=== PATIENT | female | born 1950 | race Caucasian/White ===

== ENCOUNTER 2017-03-09 16:41 | Inpatient (IN) | payer OTHER ==
[~2017-03-09] VITALS: Ht 170.2 cm; Wt 147.0 kg
[~2017-03-09 16:41] MED LIST: ASPI-973 PO; ATOR80TA PO; CALCIT PO; CARV12.52 PO; CHOL5000 PO; DEP250A PO; FERR-74 PO; GABA100C PO; LOSA100T29 PO; METF1000 PO; MULT-666 PO; NIFE30TA92 PO; NORT10CA PO; NPH,100V11 SUBQ; OXYC-466 PO; PANT40TA3 PO; POLY17PO6 PO; RANI150C4 PO; RISP1TAB90 PO; SENN-133 PO; TIZA6CAP9 PO
[2017-03-09 18:08] VITALS: BP 125/73; PULSE 89; RESP 20; O2SAT 96
[2017-03-09 19:25] VITALS: BP 117/62; PULSE 88; RESP 19; O2SAT 97
[2017-03-09] MEDS ORDERED: 0.9% Sodium Chloride 1,000 ML IV SCH (20:33)
[2017-03-09] MEDS ORDERED: Polyethylene Glycol (PEG) 17 Gm Powder PO PRN (20:35)
[2017-03-09] MEDS ORDERED: Alum-Mag Hydrox-Simeth 30 mL Suspension PO PRN (20:35)
[2017-03-09] MEDS ORDERED: Ondansetron 2 mg/mL 2 mL Inj IVPUSH PRN (20:35)
[2017-03-09] MEDS: 0.9% Sodium Chloride 1,000 ML IV SCH (21:11)
[2017-03-09] MEDS ORDERED: Glucose 40% Oral Gel 15 Gm Tube PO PRN (21:50)
[2017-03-09] MEDS ORDERED: Dextrose 10% 250 ML IV PRN (21:50)
[2017-03-09] MEDS: Insulin LISPRO 300 Unit/3 mL Inj SUBQ SCH (22:43)
[2017-03-09 23:32] LABS: INR 1.27 ratio
[2017-03-10 00:07] VITALS: BP 136/80; PULSE 71; RESP 19; O2SAT 97
[2017-03-10] MEDS: Sodium Chloride LOK Flush 10 mL Syringe IVFLUSH SCH ×3 (00:30→17:29)
[2017-03-10] MEDS: CeFAZolin Inj 2 GM in IV Premix 1 EACH IV SCH ×4 (02:23→22:55)
--- NOTE | 2017-03-10 02:32 | PCM.HPMED ---
Subjective Date of Service Mar 09, 2017 Primary Provider: Admitting Physician: Goran Forte MD Primary Care Physician: Vel Lennon DO Attending Physician: Goran Forte MD Chief Complaint: Left lower extremity pain, swelling, History of Present Illness: Jazzy Nunez 66-year-old woman with diabetes mellitus type II insulin using , hyperlipidemia, atrial fibrillation on warfarin, transferred to [facility] from [facility] after being diagnosed with osteomyelitis, rhabdomyolysis, sepsis, acute on chronic renal insufficiency, elevated lactate and positive troponin. Patient states that prior to hospitalization she was being seen by her home health care nurse who ended up calling 911 after patient was acting confused and was having increased pain in her left foot causing her to not be able to ambulate, she also describes presence of a cough. She said she does not feel well and has had fevers, chills, and cold sweats starting roughly 5 days ago. She is being seen by Dr. Edwin ELLER for ongoing problems with her feet, and Dr. Pineda has accepted the patient [facility]. Presenting vitals: 86.8, 95, 20, 100/50, 92% on 2 L nasal cannula. Labs on presentation 03/07/2017: WBC 10.6, Hgb 9.7, MCV 89.5, platelets 131, RDW 14.9. Sodium 129, potassium 5.6, chloride 92, bicarbonate 23, anion gap of 14, glucose 371, BUN 44, creatinine 3.38, estimated GFR 13 mL per minute. ALT/AST 97/297, total bilirubin 1.6, troponin 0.61, 8 hours later increased to 1.49 creatinine kinase total 12,791 with an MB fraction of 16.4 Most recent labs from today, March 09, WBC 5.9, Hgb 8.8, MCV 90, platelets 118, RDW 14.9. Sodium 136, potassium 4.7, chloride 102, bicarbonate 23, anion gap 11 , glucose 155, BUN 65, creatinine 3.34, estimated GFR 14 mL per minute, Urine from 03/07/2017 trace leukocyte esterase, pH 5.5, nitrite negative, 1+ protein, 2+ blood, negative ketones, negative glucose, 3+ bacteria, occasional epithelial cells. Physician dictation from discharge summary states EKG showed atrial fibrillation with RVR, rate 110, nonspecific intraventricular conduction delay. CT abdomen and pelvis without contrast showed left kidney nonobstructive stone 0.5 cm the lower pole. Otherwise unremarkable. Chest x-ray showed poor inspiratory effort and poor quality film no acute cardiopulmonary findings. Blood culture DNA identification panel performed March 07 revealed Staphylococcus aureus She was started on Ancef as she appeared to be growing MSSA and vancomycin was discontinued. She received potassium replacement at [facility], improved anion gap. Review of Systems: A comprehensive review of systems was conducted with the patient and found to be negative except as above in the history of presenting illness. Allergies Coded Allergies: Penicillins (Verified Allergy, Unknown, UNKNOWN, 02/01/16) Patient states she think she got hives. Home Medications Aspirin 81 mg daily Lipitor 80 mg every afternoon baclofen 10 mg 3 times a day calcium/vitamin D daily Vitamin D 3 5000 IUs daily Plavix 75 mg daily Cymbalta 60 mg daily Ferrous sulfate 325 mg 3 times a day Lasix 120 mg daily NPH 80 units in the morning, 20 units at night Lactobacillus 1 tablet 3 times a day Level thyroxine 50 g daily Ativan 1 mg 3 times a day as needed for anxiety Losartan 100 mg every afternoon Metformin 1000 mg twice a day Metoprolol 75 mg twice a day Multivitamin 1 tablet daily Pamelor 150 mg at bedtime Nystatin powder apply to affected areas 3 times a day when necessary Oxycodone 10/325 one tablet every 4 hours when necessary for pain Protonix 40 mg every morning MiraLAX 17 mg in 8 ounces of water daily Zantac 150 mg twice a day Senokot 8.6 mg daily for constipation Aldactone 50 mg daily Zanaflex 4 mg every 6 hours 3 times daily Warfarin 5 mg daily PMH Peripheral vascular disease 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 Family History Family history breast cancer, diabetes, hypertension and peripheral vascular disease, hypercholesterolemia Social History Hx Alcohol Use: No Hx Substance Use: No Hx Tobacco Use: No Smoking Status: Never Smoker Living Arrangement: Alone Exam Vital Signs Vital Sign - Last Date Time Temp Pulse Resp B/P Pulse Ox O2 Delivery O2 Flow Rate FiO2 03/09/17 19:25 36.6 88 19 117/62 97 Room Air Exam General: Laying in bed, no apparent distress. Asleep and easily awoken to verbal stimuli, morbidly obese. HEENT: Normocephalic, atraumatic, EOMI grossly, poor dentition, mucous membranes moist, neck supple without lymphadenopathy, conjunctiva pink, PERRLA. Cardiovascular: Irregularly irregular rhythm, normal rate, peripheral pulses 2/ 4 to upper extremities equal bilaterally. Cap refill equal bilaterally to lower extremities Pulmonary: Clear to auscultation bilaterally, no W/R/R. Abdominal: Soft to palpation, bowel sounds present 4, no hepatosplenomegaly. Negative rebound. Extremities: Bilateral lower Rylan edema, red erythema with excoriation pretibial left lower extremity, dorsum of left foot, left foot is swollen, red, warm. Neuro: Neurologically grossly intact, strength is equal bilaterally upper and lower extremities. MSK: Able to move extremities on their own volition, strength 5 out of 5 equal bilaterally to upper and lower extremities. Psych: Oriented to person, place, time, situation, appropriate mood and affect. Some confusion with recollection of events leading up to her hospitalization. Lab and Diagnostics Labs See paper chart Outlying values mentioned in history of present illness Microbiology See paper chart, reportedly growing MSSA Assessment & Plan 66-year-old woman with hypertension, hyperlipidemia, atrial fibrillation, chronic kidney disease, uncontrolled diabetes, presented with weakness, confusion, chills to [facility], was found to be septic with probable source of infection left lower extremity, deemed to have osteomyelitis , she had elevated l[place] [address], and blood PCR identified staph aureus species, and culture growing MSSA. She was started on Ancef, received fluids, and monitored. Decision was made that surgery may be necessary and she was transferred to [facility] and will be seen by Dr. Pineda of podiatry. Acute Sepsis, present on admission, treatment ongoing Presenting vitals pulse of 95, respirations 20, lactate 6.8, with most likely focus of infection left foot. Blood pressures remained stable Treatment for osteomyelitis as below Blood culture DNA identification performed 03/07/2017, results in paper chart Lactic acid 6.8 on presentation to [address] [place] [id number], has trended down. Will recheck and continue to trend if elevated. Acute osteomyelitis, present on admission, active MSSA grew on culture, Ancef 2 g every 6 hours based on patient's habitus. Dr. Pineda DPM to see patient with anticipated surgery. Pro-calcitonin and trend I cannot find x-ray report of left lower extremity, however I am under the impression that Dr. Pineda has seen the images and thus has accepted her at [facility]. Acute Rhabdomyolysis, present on admission, active CK Greater than 12,000, attributed to injury or possible fall and dehydration. Patient again conveys that she did not fall. IV fluids normal saline 100 mL per hour Recheck CK Acute on chronic kidney injury, present on admission, active Attributed to injury from rhabdomyolysis above, superimposed dehydration. IV fluids as above Nephrology consultation Permanent atrial fibrillation, POA, active Rate is controlled. ASA 81 mg daily Continue metoprolol 75 mg by mouth twice a day Warfarin dosed by pharmacy, last INR 1.4 on 03/09/2017 6 AM. Chronic hypertension, present on admission, stable Continue to monitor, Continue home medications of losartan, Metoprolol tartrate 75 mg by mouth twice a day Diabetes mellitus type II, chronic, uncontrolled Present on admission, blood sugar greater than 300 by Accu-Chek Humalog sliding scale insulin while awake with meals Hemoglobin A1c Diabetes education Chronically elevated troponin, POA active Patient's troponin remained elevated throughout hospitalization and was trending down before discharge, denies chest pain, angina equivalents. We will recheck troponin if change in rhythm, rate, or symptomatic. Morbid obesity, present on admission, active BMI 50.8 Dietitian/volunteer patient representative consultation Chronic Hypothyroidism, POA, stable 50 g levothyroxine by mouth daily Resolved/presumed stable Hyponatremia, -follow with a.m. labs hyperkalemia, - follow with a.m. labs Elevated transaminases - attributed to fatty liver, follow with a.m. labs Anemia - attributed to chronic disease, continue to follow with a.m. labs Mild thrombocytopenia- follow with a.m. labs, watch for bleeding, bruising. Medication reconciliation to be completed. Patient is admitted to inpatient status, greater than 2 minutes and dissipated based on presenting symptoms, complexity of care, and anticipated risk of adverse events. Pain Evaluation: Adequate Pain Control GI Prophylaxis: Not indicated VTE Prophylaxis: Theraputic Anticoag with Warfarin VTE Mechanical Devices: Intermittant Pneumatic CD Resuscitation Status: CPR: Attempt Resuscitation Attending Statement The patient was seen and examined together with Dr. Lim on 03/09 and I agree with the history, exam and plan as outlined in the note above. Curtis Lozano DO Mar 09, 2017 20:49 Mik Zurita MD Mar 10, 2017 07:59
[2017-03-10 04:53] VITALS: BP 164/83; PULSE 95; RESP 19; O2SAT 97
[2017-03-10 05:15] LABS: BASOPHILS % (AUTO) 0.7 % (0-3); EOSINOPHILS % (AUTO) 4.3 % (0-5); MONOCYTES % (AUTO) 10.4 % (4-12); Mean Corpuscular Hemoglobin 28.7 pg (27.0-35.0); Mean Corpuscular Volume 90.6 fL (81-100); NEUTROPHILS % (AUTO) 70.7 % (40-74); Platelet Count 142 bil/L (150-400)
[2017-03-10 05:31] LABS: INR 1.24 ratio
[2017-03-10] MEDS ORDERED: ASPI81TA3 PO (06:03)
[2017-03-10] MEDS ORDERED: LACT1CAP6 PO (06:03)
[2017-03-10] MEDS ORDERED: LEVO50TA6 PO (06:03)
[2017-03-10] MEDS ORDERED: BACL10TA PO (06:03)
[2017-03-10] MEDS ORDERED: METO75TA PO (06:03)
[2017-03-10] MEDS ORDERED: DULO60CA61 PO (06:03)
[2017-03-10] MEDS ORDERED: LOSA100T29 AD (06:03)
[2017-03-10] MEDS ORDERED: NYST1POW23 MC (06:24)
[2017-03-10] MEDS ORDERED: OXYC-466 PO (06:24)
[2017-03-10] MEDS: 0.9% Sodium Chloride 1,000 ML IV SCH (06:33)
--- NOTE | 2017-03-10 06:34 | NUR ---
Anxiety Patient has had increased anxiety this morning. Patient stated she was worried about a food delivery service that was supposed to deliver to her house. Patient has a persistent cough that she states started yesterday and seems to be increasing in severity. Patient was unable to confirm many of her medications. Medication reconciliation ongoing. Vitals stable.
--- NOTE | 2017-03-10 07:29 | NUR ---
persistent cough/SOB pt has rales through. She received 4L of fluid while she was at [facility] yesterday. Call to Dr Forte, he will put in order for Stuart
[2017-03-10] MEDS ORDERED: Furosemide 10 mg/mL 2 mL Inj IVPUSH ONE (07:30)
[2017-03-10] MEDS: Insulin LISPRO 300 Unit/3 mL Inj SUBQ SCH ×4 (08:29→23:07)
[2017-03-10] MEDS ORDERED: Insulin Human NPH 100 Unit/mL 3 mL Inj SUBQ SCH ×2 (08:30→17:30)
[2017-03-10 08:49] VITALS: BP 131/76; PULSE 68; RESP 18; O2SAT 97
--- NOTE | 2017-03-10 12:18 | CONS ---
[address] [address] CONSULTATION REPORT PATIENT: TIM RODGERS : 1950 MR#: [id number] ADMIT: 03/09/2017 JOB ID: [id number] DATE OF SERVICE: 03/10/2017 RENAL CONSULTATION: HISTORY: The patient is a very pleasant, 66-year-old white female who was transferred to [facility] from [facility] for acute kidney injury and rhabdomyolysis. Renal consultation is being sought for further evaluation and management of her acute kidney injury. She has a history of [id number] diabetes mellitus for at least 8-10 years. Her diabetes has been complicated by peripheral neuropathy, vascular disease, and previous ulcers in the distal lower extremity. She also has a history of peripheral vascular disease. She apparently had taken several doses of baclofen and fell asleep in her chair. She had great difficulty being aroused and was asleep for an unknown period of time. She was initially taken to [facility] where at that time her creatinine was found to be 3.38 and her CPK was 12,791. She was given several liters of IV fluid and subsequently transferred to [facility] for further evaluation. She denies a history of any prior renal problems. There is no history of any prior hematuria, proteinuria, recurrent urinary tract infections, renal lithiasis, difficulties with urination, frequent use of nonsteroidal anti-inflammatories, lupus, or hepatitis C. As noted above she does have a history of diabetes. She states her last eye exam was less than a month ago and there is no history of any diabetic retinopathy. There is also a longstanding history of hypertension and atrial fibrillation for which she is on warfarin. She has also had a history of recurrent ulcerations to her left lower leg for which she has been seen by Dr. Pineda in the past. A recent blood culture showed MSSA; however, I am unsure as to how many bottles were positive for this. She was originally given a dose of vancomycin and now that it was found to be MSSA she was switched to cefalotin. PAST MEDICAL HISTORY: 1. Remarkable for diabetes which she has been complicated by diabetic peripheral neuropathy and peripheral vascular disease. 2. Peripheral vascular disease. 3. Hypertension with hypertensive heart disease and hypertensive nephrosclerosis. 4. GERD. 5. Hyperlipidemia. 6. Hypothyroidism. However, she denies a history of any prior stroke, seizure, asthma, emphysema, prior heart issues including myocardial infarction or congestive heart failure. There is no history of any malignancies. PAST SURGICAL HISTORY: Significant for a carpal tunnel release, a revascularization of her right leg, ORIF of her right arm, and some type of surgery to her knee. ALLERGIES: PENICILLINS. SOCIAL HISTORY: She denies use of alcohol, tobacco, or illicit drugs. She is retired and is somewhat sedentary in her activities of daily living for which she requires some assistance. REVIEW OF SYSTEMS: As detailed above. Otherwise she denies any headache, visual disturbances, amaurosis fugax, scotomas, cough, wheezing, chest pain, orthopnea, but she does admit to some lower extremity edema and increasing abdominal girth over the last several weeks. She also states she has felt that she has gained some weight in her abdomen. Otherwise there is no nausea, vomiting, constipation, anorexia, or diarrhea. FAMILY HISTORY: Remarkable for breast cancer, diabetes, hypertension, peripheral vascular disease, and hyperlipidemia. MEDICATIONS: At time of admission include aspirin, Lipitor, baclofen, Plavix, Cymbalta, ferrous sulfate, Lasix, insulin, lactobacillus, levothyroxine, Ativan, losartan, metformin, metoclopramide, Pamelor, oxycodone, Protonix, MiraLAX, Zantac, Senokot, Aldactone, Zanaflex, and warfarin. PHYSICAL EXAMINATION: Revealed a morbidly obese 66-year-old white female who was alert and oriented x3, though quite talkative at time of my evaluation. Her blood pressure is 131/76 with a pulse rate of 68. HEENT examination is remarkable for pale sclerae. Cornea, conjunctiva, pupils, and extraocular muscles were all within normal limits. Mucous membranes were moist. Neck is supple, without adenopathy or thyromegaly. Because of her body habitus I could not determine any degree of jugular venous distention. Examination of her lungs showed some diminished breath sounds bilaterally but otherwise were clear. Heart was regular and rhythmical with a soft systolic murmur. Abdomen is distended, with a free fluid wave noted. Her abdomen is non tense. There was no tenderness, rebound, guarding, or masses; however, there was some questionable hepatomegaly noted. Extremities showed some mild pitting edema in both distal lower extremities. Half and half nails were noted. Her left lower extremity showed evidence of diffuse erythema and several small ulcerations consistent with peripheral vascular disease. The area was also warm to touch. Skin turgor was good and there was no evidence of any rashes. LABORATORY: As detailed above at time of admission her creatinine was 3.3; however, this morning she has had considerable improvement. Her sodium is 139, potassium 5.5, chloride 104, bicarbonate 21. BUN and creatinine were 48 and 1.5. Liver function studies showed a marked elevation; her AST was 260, ALT was 364. CPK this morning was 4900 and albumin was 3.1. Procalcitonin is 1.01. Her white count is 5.8, hemoglobin 9.8, hematocrit 31.0. Red cell indices and platelet count and differential were normal. No urinalysis was available at time of admission. IMPRESSION: 1. Acute kidney injury. 2. Rhabdomyolysis which is resolving. 3. Hyperkalemia. 4. Diabetic nephropathy. 5. Hypertension with hypertensive heart disease and hypertensive nephrosclerosis with right-sided congestive heart failure. 6. Type 4 renal tubular acidosis. RECOMMENDATION: I feel the patient at this point is euvolemic and her renal function and CPK are continuing to improve. I would recommend getting a renal ultrasound and also a scan of the abdomen for ascites. I would also like to get an echocardiogram if one has not been obtained recently. If there is a recent echo, we would like to get this from [facility]. I would also like to check a uric acid level and a serum protein electrophoresis. I would also be strongly suspicious for obstructive sleep apnea and would recommend at the minimum a nocturnal oximetry reading. Once again, I would like to thank you for allowing me to participate in the care of this most pleasant and interesting patient. I will be following her closely with you.
--- NOTE | 2017-03-10 14:10 | DRSVH ---
PROCEDURE: US ABDOMEN, LIMITED ([id number]) INDICATIONS: Evaluate for ascites in the abd. TECHNIQUE: Real-time focused scanning was performed of the abdomen, with image documentation. COMPARISON: [facility], CT, CT ANGIO AORTA RUNOFF, 11/04/2015, 13:53. FINDINGS: No ascites found. IMPRESSION: No ascites found throughout the peritoneal space. Dictated by: Blair Chandler M.D. on 03/10/2017 at 14:08 Approved by: Blair Chandler M.D. on 03/10/2017 at 14:08
--- NOTE | 2017-03-10 14:53 | PCM.PHAPRO ---
Progress Left lower extremity pain, swelling, WARFARIN DOSING PER PHARMACY Mar 10-Feb 1.27 1.24 -0.03 unknown HOLD Dosing is currently being held due to anticipation of surgery Pharmacy will continue to follow, thank you Maryellen Ariza PharmD Mar 10, 2017 14:53
[2017-03-10] MEDS ORDERED: SENN-133 PO (16:26)
[2017-03-10] MEDS ORDERED: SPIR50TA2 PO (16:26)
[2017-03-10] MEDS ORDERED: WARF2.5T PO (16:26)
[2017-03-10] MEDS ORDERED: CHOL500062 PO (16:26)
[2017-03-10] MEDS ORDERED: WARF5TAB7 PO (16:26)
[2017-03-10] MEDS ORDERED: FURO-128 PO (16:26)
[2017-03-10] MEDS ORDERED: CLOP75TA3 PO (16:26)
--- NOTE | 2017-03-10 16:39 | PCM.PNMED ---
Subjective Date of Service Mar 10, 2017 Subjective Patient having a wide variety of complaints but when pressed says other than the IV giving her pain is okay. No chest pain, no dyspnea, no nausea or vomiting Exam Vital Signs Vital Sign - Last Date Time Temp Pulse Resp B/P Pulse Ox O2 Delivery O2 Flow Rate FiO2 03/10/17 08:49 36.8 68 18 131/76 97 Room Air Intake and Output 03/09/17 03/09/17 03/10/17 Cumulative From/Thru 15:00 23:00 07:00 03/09/17 18:10 - 03/10/17 06:41 Intake Total 90 ml 1571 ml 1661 ml Output Total 150 ml 1100 ml 1250 ml Balance -60 ml 471 ml 411 ml Intake Oral 90 ml 650 ml 740 ml IV Total 921 ml 921 ml Output Urine Total 150 ml 1100 ml 1250 ml # Bowel Movements 0 0 Exam Gen.- A+ O 3 mild to moderate distress as described above. Morbidly obese female Head-atraumatic/normocephalic Eyes- open conjunctiva clear, pupils equal, nonicteric Mouth- no deformity of lips ENT- ears no deformity, nose no deformity Neck- supple/trach midline CVS- RRR no murmur or gallop Lungs- CTA GI- NABS/NT soft, generous/each pannus Musc- moving 4 no obvious deformity There is a dressing over left foot to skin is dry, and the foot is somewhat more swollen than the right Neuro- cranial nerves II through XII intact to gross examination, nonfocal Skin- warm and dry, no rashes/lesions/wounds noted Numerous lines delineate where erythema may have been 03/09 it has receded since then. Psych- pleasant and appropriate, Lab and Diagnostics Result Diagram: 03/10/17 0500 03/10/17 0500 Microbiology See paper chart, reportedly growing MSSA X-Rays, CTs and MRIs US ABDOMEN, LIMITED: Blair Chandler M.D. on 03/10/2017 at 14:08 No ascites found throughout the peritoneal space. Dictated by: Blair Chandler M.D. on 03/10/2017 at 14:08 Assessment & Plan 66-yo woman presented with weakness, confusion, chills to [facility] 03/09, septic with probable source left lower extremity/osteomyelitis, transferred to [facility] to be seen by Dr. Pineda of podiatry. 03/10 Dr. Pineda needed to be consulted and it is coming to see the patient she is going to be fed today as there is no surgery planned at this point in time. CKs are trending down and eat an EKG and another troponin and an adjusting insulin as this patient is on upwards of 100 units a day and blood sugars are running over 300 while she was nothing by mouth. Treating hyperkalemia with IV fluids in addition to the rhabdo and giving a dose of Kayexalate will follow up labs in the morning. Her anemia is chronic and largely unchanged. Transaminitis likely related to whatever event cause the rhabdo and hope we will continue to trend this prior transaminases have been normal. Cellulitis/osteomyelitis L foot, MSSA, on Ancef 2 g q6 03/09- -Dr. Pineda DPM consulted 03/10 Rhabdomyolysis, CK >12,000 UGH 03/09, down to 4900, continue to trend/hydrate -Patient not having pain and it does not appear she has a compartment syndrome however with severe peripheral vascular disease that is known this is an obvious concern. AAKASH- base Cr 0.7, 1.5 03/10, continued hydration trend. hyperkalemia, - follow with a.m. labs-Dose Kayexalate 03/10 continue IV fluids elevated troponin, POA active- need to see current EKG and follow most likely related to rhabdo. Patient is not symptomatic Peripheral vascular disease- known chronically occluded superficial femoral artery attempted to be opened by Dr. Campos likely 2015 contributes to why patient is on aspirin, clopidogrel, warfarin afib,Rate controlled.ASA 81 mg daily?, metoprolol 75 mg BID, Warfarin dosed by pharmacy, last INR 1.4 on 03/09/2017 6 AM. HTN losartan,Metoprolol tartrate 75 mg by mouth twice a day Diabetes mellitus type II, - BS 250-300/24hrs, will adjust regimen and this is while patient has been primarily nothing by mouth for surgery -Present on admission, blood sugar greater than 300 by Accu-Chek -Humalog sliding scale insulin while awake with meals -Hemoglobin A1c -Diabetes education Morbid obesity, present on admission, active- BMI 50.8, Dietitian/food service director consultation Chronic Hypothyroidism, POA, stable- 50 g levothyroxine by mouth daily Elevated transaminases - acute/new certainly steatohepatitis is not helping this but's is a new problem. Anemia - Hg baseline 9-10 GI Prophylaxis: Not indicated VTE Prophylaxis: Theraputic Anticoag with Warfarin VTE Mechanical Devices: Intermittant Pneumatic CD Resuscitation Status: CPR: Attempt Resuscitation Goran Forte MD Mar 10, 2017 16:39 Patient is admitted to inpatient status, greater than 2 minutes and dissipated based on presenting symptoms, complexity of care, and anticipated risk of adverse events. GI Prophylaxis: Not indicated VTE Prophylaxis: Theraputic Anticoag with Warfarin VTE Mechanical Devices: Intermittant Pneumatic CD Resuscitation Status: CPR: Attempt Resuscitation Goran Forte MD Mar 10, 2017 16:39
[2017-03-10 16:51] VITALS: BP 150/65; PULSE 70; RESP 19; O2SAT 96
[2017-03-10] MEDS ORDERED: NORT75CA PO (16:52)
[2017-03-10] MEDS ORDERED: [UNRECOGNIZED DRUG - CODE] DENTAL (16:52)
[2017-03-10] MEDS ORDERED: ASPI-973 PO (16:52)
[2017-03-10] MEDS ORDERED: LORA1TAB PO (16:52)
[2017-03-10] MEDS ORDERED: FRSM80T PO (16:52)
[2017-03-10] MEDS ORDERED: CALC-235 PO (16:52)
--- NOTE | 2017-03-10 19:56 | NUR ---
Home Health patient pretty anxious about getting ahold of her home urvashi nurse unable to get answer t number she gave me but did leave [facility]
[2017-03-10 20:37] VITALS: BP 137/74; PULSE 82; RESP 18; O2SAT 94
[2017-03-10] MEDS: Insulin Human NPH 100 Unit/mL 3 mL Inj SUBQ SCH (23:08)
--- NOTE | 2017-03-10 23:25 | CONS ---
[address] [address] CONSULTATION REPORT PATIENT: TIM RODGERS : 1950 MR#: [id number] ADMIT: 03/09/2017 JOB ID: [id number] DATE OF SERVICE: 03/11/2017 The patient is asked to be seen for infected ulcer with possible osteomyelitis of her left foot. The patient was admitted to [facility] on March 09, 2017 and was confused and was having increasing pain in her left foot. She did have fever and chills, however, she has not had any problems with this today. She was being seen by home health to do dressing changes on her left foot, however, she was unable to answer the door and the home health nurse had to crawl through the window in order to access her home. She did end up calling 911 and the ambulance took her to [facility]. Blood culture showed sepsis as her blood cultures were positive. Am MRI was performed at [facility] which showed probable osteomyelitis at the 4th metatarsal plantar joint. However, the patient was unable to lay still and there was some motion artifact. The patient has a prior history of diabetic foot infection with osteomyelitis of the 3rd through 5th metatarsophalangeal joints in October 2015. The infection cleared with local bone debridement as well as IV and oral antibiotics. She has been battling with a recurrent diabetic neuropathic ulceration since then. She was being seen at the [facility] as well as by Home Health for local wound cares. She also has a problem with chronic swelling of the left lower leg of undetermined etiology. Dr. Lennon was adjusting her diuretic medication to try to decrease her edema. It was noted that she had an elevated creatinine and rhabdomyolysis diagnosed upon this admission to [facility]. She has a history of diabetes and her blood sugars are usually well controlled. She also has a history of atrial fibrillation and is on warfarin. She has had poor circulation in the past and had a bypass on her left lower leg as well as angioplasty of the right lower leg. The patient was scheduled to have an amputation of her right hallux which was actually scheduled for tomorrow. Recent x-rays show that the distal phalanx of the right hallux was osteolytic when compared to previous x-rays and the toe has become more painful, red and swollen, although there is no ulceration at this time. PAST MEDICAL HISTORY: Significant for peripheral vascular disease, diabetes type 2 with peripheral neuropathy, GERD, hypertension, hypercholesterolemia, hypothyroidism, carpal tunnel, history of diabetic neuropathic ulcerations with osteomyelitis left foot, 2016. PAST SURGICAL HISTORY: Carpal tunnel release, surgery of the right humerus, right knee surgery, left leg arterial bypass. HOME MEDICATIONS: 1. Aspirin 81 mg daily. 2. Lipitor 80 mg every afternoon. 3. Baclofen 10 mg t.i.d. 4. Calcium and vitamin D daily. 5. Vitamin D3 5000 international units daily. 6. Plavix 75 mg daily. 7. Cymbalta 60 mg daily. 8. Ferrous sulfate 325 mg three times a day. 9. Lasix 120 mg daily., 10. NPH insulin 80 units in the morning and 20 units at night. 11. Lactobacillus one tablet three times a day. 12. Levothyroxine 50 mcg daily. 13. Ativan 1 mg three times a day as needed for anxiety. 14. Losartan 100 mg every afternoon. 15. Metformin 1000 mg twice a day. 16. Metoprolol 75 mg b.i.d. 17. Multivitamin one tablet daily. 18. Pamelor 150 mg at bedtime. 19. Nystatin powder applied to affected areas three times a day p.r.n. 20. Percocet 10/325 one tablet every 4 hours p.r.n. pain. 21. Protonix 40 mg every morning. 22. MiraLAX 17 mg in 8 ounces of water daily. 23. Zantac 150 mg twice daily. 24. Senokot 8.6 mg daily for constipation. 25. Aldactone 50 mg daily. 26. Zanaflex 4 mg every 6 hours t.i.d. 27. Warfarin 5 mg daily. ALLERGIES: PENICILLIN. She gets hives. SOCIAL HISTORY: She does not smoke or drink alcohol. She lives in her own home alone. PHYSICAL EXAMINATION: Blood pressure 150/65, pulse 70, respirations 19, temperature 36.8, pulse oximetry 96% on room air. There is hyperkeratosis with underlying pustular discharge, plantar 4th metatarsophalangeal joint. There is underlying pustular discharge underneath the hyperkeratosis and this extended into the 4th interspace. There is surrounding erythema and swelling. I am able to manually express pustular discharge from the medial aspect of the 4th metatarsophalangeal joint. Upon debridement of the hyperkeratosis and nonviable and fibrotic tissue, it was noted that the head of the 4th metatarsal was visible within the wound base. The erythema and swelling extended from the 4th to 5th metatarsophalangeal joint around the base of the plantar aspect of the 5th toe. The bone was yellow, discolored and slightly soft to palpation. There is dorsal dislocation of the 5th left toe over the 5th metatarsophalangeal joint. There is mild erythema and swelling of the anterior matthew and dorsal midfoot area, however, this is not contiguous with the erythema and swelling around the plantar aspect of the 4th and 5th metatarsophalangeal joint. Dorsalis pedis and posterior tibialis artery is nonpalpable. The foot is warm to touch. LABORATORY DATA: WBC 5.8, hemoglobin 9.8, hematocrit 31, platelets 142, neutrophils 70.7. Sodium 139, potassium 5.5, chloride 104, carbon dioxide 21, BUN 48, creatinine 1.50. Estimated GFR 50. Glucose 272, lactic acid 1.1, uric acid. 9.8, calcium 8.4, total bilirubin 0.7, AST 260. ALT 364, alkaline phosphatase 119, total creatine kinase 4919, total protein 5.8, albumin 3.1, procalcitonin 1.01, PT 13.3, INR 1.24. ASSESSMENT/PLAN: 1. Abscess with probable osteomyelitis as there is bone exposed within the wound base. The blood culture from [facility] is positive for methicillin sensitive Staphylococcus aureus. She is currently receiving Ancef IV. I incised and drained the abscess overlying the 4th and 5th metatarsophalangeal joints. After I administered 4 cc of lidocaine 1% plain around the area of the ulcer, the nonviable and fibrotic tissue was sharply excised through skin edges through healthy subcutaneous tissue using a tissue nipper. I also manually applied pressure to the dorsal 4th and 5th metatarsophalangeal joint as well as interspaces and I was unable to express any pustular discharge. I debrided the yellow discolored bone down to healthy bleeding bone using a tissue nipper, and a sample was sent for culture and sensitivity. I then applied pressure to the medial aspect of the 4th metatarsophalangeal joint and was able to express a small amount of pus. Using a tissue nipper, I debrided the necrotic tissue in this area and then copiously flushed the remaining ulceration with normal saline. The remaining ulceration measured 1.1 cm x 0.7 cm x 0.4 cm in depth. The area was then dressed using Hydrogel, 1/4 inch Iodoform gauze, 4 x 4 gauze, and Kerlix. The patient tolerated the procedure well. Will continue with Ancef until culture results are final. I will reassess tomorrow to see whether further debridement needs to be performed. I recommend having the dressing changed twice daily and the wound flushed with normal saline to help resolve the infection. 2. Chronic osteomyelitis, right hallux. Patient was scheduled for a distal amputation at the hallux interphalangeal joint, however, this is not urgent and can be addressed on an outpatient basis as planned. 3. Type 2 diabetes. Blood sugars are usually well controlled when it is measured at the wound clinic. 4. Peripheral vascular disease. The patient has not had any problems with healing of the wound since she has had a bypass on the left foot as well as on the right foot.
[2017-03-11] MEDS: Sodium Chloride LOK Flush 10 mL Syringe IVFLUSH SCH ×4 (00:30→23:19)
[2017-03-11] MEDS: CeFAZolin Inj 2 GM in IV Premix 1 EACH IV SCH ×4 (02:56→22:06)
[2017-03-11 05:21] LABS: BASOPHILS % (AUTO) 0.5 % (0-3); EOSINOPHILS % (AUTO) 2.4 % (0-5); MONOCYTES % (AUTO) 10.4 % (4-12); Mean Corpuscular Hemoglobin 28.8 pg (27.0-35.0); Mean Corpuscular Volume 89.9 fL (81-100); NEUTROPHILS % (AUTO) 71.2 % (40-74); Platelet Count 182 bil/L (150-400)
[2017-03-11 05:22] VITALS: BP 153/75; PULSE 104; RESP 20; O2SAT 94
[2017-03-11 05:38] LABS: INR 1.12 ratio
[2017-03-11 06:50] LABS: Unsaturated Iron Binding 166.7 ug/dL
[2017-03-11 07:43] LABS: TROPONIN T 0.085 ug/L (0.0-0.011)
[2017-03-11] MEDS ORDERED: Sodium Chloride NAS 45 mL Spray NASAL PRN (07:55)
[2017-03-11] MEDS ORDERED: Polyethylene Glycol (PEG) 17 Gm Powder PO PRN (09:10)
[2017-03-11] MEDS: Insulin LISPRO 300 Unit/3 mL Inj SUBQ SCH ×4 (09:25→22:05)
[2017-03-11] MEDS: Codeine-guaiFENesin 10 mL Syrup PO PRN (09:25)
[2017-03-11] MEDS: Fluticasone 0.05% 15 Spray/2 Gm 16 Gm Nasal Spray NASAL SCH (09:30)
[2017-03-11] MEDS: Insulin Human NPH 100 Unit/mL 3 mL Inj SUBQ SCH (10:10)
--- NOTE | 2017-03-11 11:30 | PCM.PNNEPH ---
Subjective Date of Service Mar 11, 2017 Subjective Patient is a 66yof transfer patient from [facility] with MHx significant for longstanding DM II with neuropathy and hypertension admitted for AAKASH 2nd to rhabdomyolysis and sepsis related to osteomyelitis. She reports increasing dry cough, otherwise denies any other new symptoms. No nausea vomiting fevers or chills. Patient does have an underlining chronic pain, which alleviated when home medication including baclofen reinstated. Today's vitals stable temperature 36.7, pulse 104, BP 153/75, pulse 94% on room air. I's and O's remained adequate colon 1.3/2.3 L. Kidney function significantly improved, creatinine 0.85 is at baseline. Total CK 2100, significantly down from initial 13,000. Electrolytes sodium 139, potassium 4.9, chloride 102, bicarbonate 18, when necessary 25. AST ALT elevated, 155/246. Trending down, again patient denies any abdominal pain Uric acid elevated at 9.8 CBC unremarkable, hemoglobin 10 stable. Iron panel study came back with iron 50, TIBC 217, percent saturation 23, unsaturation iron binding is 166. Patient fluid stopped yesterday, Pt likely slightly overloaded given that she receive over 4 L normal saline with physical finding of mild crackers and the lower lung base. Labs SPE pending Exam Vital Signs Vital Sign - Last Date Time Temp Pulse Resp B/P Pulse Ox O2 Delivery O2 Flow Rate FiO2 03/11/17 05:22 36.7 104 20 153/75 94 Room Air Intake and Output 03/10/17 03/10/17 03/11/17 Cumulative From/Thru 15:00 23:00 07:00 03/09/17 18:10 - 03/11/17 06:34 Intake Total 1200 ml 1332 ml 4193 ml Output Total 3600 ml 2300 ml 7150 ml Balance -2400 ml -968 ml -2957 ml Intake Oral 1200 ml 1037 ml 2977 ml IV Total 295 ml 1216 ml Output Urine Total 3600 ml 2300 ml 7150 ml # Bowel Movements 0 0 Exam General: Alert, Oriented X3, No Acute Distress Eyes: PERRLA, EOMI, Scleral Anicteric, Mouth: Mucous Membranes Dry Neck: Supple, no jvd Chest & Lungs: b/l lung sound, mild wheezes, no crackles or coarse breathing Cardiovascular: Exam Unremarkable, Regular Rate/Rhythm, Normal S1, Normal S2, No Murmurs/Rubs/Gallops Abdomen: obese, Non-tender, Non-distended, no rebound tenderness, Positive bowel sounds. Genitourinary: Quiles Present Extremities: No cyanosis/clubbing, lysis ulcer Right distal lateral plantar with mild erythema and swelling. Neuro: CN II-VII intact, moving equally on a 4 extremities. Lab and Diagnostics Result Diagram: 03/11/17 0504 03/11/17 0504 Microbiology See paper chart, reportedly growing MSSA X-Rays, CTs and MRIs US ABDOMEN, LIMITED: Blair Chandler M.D. on 03/10/2017 at 14:08 No ascites found throughout the peritoneal space. Dictated by: Blair Chandler M.D. on 03/10/2017 at 14:08 Plan Impression Patient is a 66yof transfer patient from [facility] with MHx significant for longstanding DM II with neuropathy and hypertension initially presented with altered mentation, admitted for AAKASH, sepsis, and osteomyolitis. Nephrology has been consulted for eval and treatment of acute kidney injury. AAKASH 2nd to most likely rhabdomyolysis. Patient had reportedly took baclofen and sat on hard chair for unknown hours. Initial labs showed elevated Cr 3.38 with elevated BUN 44 and hyperkalemia, Uric acid also high, indicative of rhabdomyolysis. Creatinine and thus renal function normalized with aggressive hydration. # Acute kidney injury (resolved). baseline Creatinine 0.88 # Rhabdomyolysis (resolved) # Hyperkalemia. (resolved) # Insulin dependent diabetes II with diabetic nephropathy. # Chronic osteomyolitis # Hypertension with hypertensive heart disease and hypertensive nephrosclerosis with right-sided congestive heart failure. # Type 4 renal tubular acidosis. Plan: - AAKASH resolved, Cr back to baseline. Nephrology will go ahead and sign off. - Recommend toresemide 20mg PO daily at discharge. - Start allopurinol 100 mg daily. Chris Larios DO Mar 11, 2017 11:30
[2017-03-11 12:30] VITALS: BP 146/82; PULSE 81; RESP 18; O2SAT 91
--- NOTE | 2017-03-11 13:46 | NUR ---
Evaluation completed. Please go to "Notes" then click on "Assessments and Notes" (bottom left corner of screen). Then select appropriate discipline tab on top of screen.
--- NOTE | 2017-03-11 14:31 | DRSVH ---
PROCEDURE: US RENAL SONOGRAM INDICATIONS: recent marilyn TECHNIQUE: Real-time scanning was performed of the kidneys and bladder, with image documentation. COMPARISON: None. FINDINGS: Kidneys: Kidneys are normal in size. Right kidney measures 11.1 cm long; left kidney measures 11.0 cm long. Right renal cortical thickness is 1.8 cm; left renal cortical thickness is 1.0 cm. Renal c ortical echotexture is normal. No hydronephrosis or nephrolithiasis. No suspicious solid mass lesio ns. Bladder: Bladder is empty with catheter present. Ureteral jets are not seen. Miscellaneous: No free pelvic fluid. IMPRESSION: Technically difficult exam secondary to body habitus. No renal obstruction seen. Urinary bladder is e mpty. Dictated by: Alfredo Contreras M.D. on 03/11/2017 at 14:27 Approved by: Alfredo Contreras M.D. on 03/11/2017 at 14:29
[2017-03-11] MEDS: Nystatin 100,000 Unit/Gm 15 Gm Powder TOPICAL SCH ×2 (14:42→22:05)
--- NOTE | 2017-03-11 16:00 | NUR ---
Activity Patient shown much improvement from this morning. Able to assist with getting out of bed and dangles with no pain.
[2017-03-11] MEDS: Pantoprazole 40 mg ER24 Tablet PO SCH (16:27)
--- NOTE | 2017-03-11 17:19 | PCM.PNMED ---
Subjective Date of Service Mar 11, 2017 Subjective Patient complaining of terrible pain from intervention done last night. She denies chest pain but she is having a cough, no nausea or vomiting or breathing trouble. She does mention that she normally takes sinus medication. Exam Vital Signs Vital Sign - Last Date Time Temp Pulse Resp B/P Pulse Ox O2 Delivery O2 Flow Rate FiO2 03/11/17 12:30 36.7 81 18 146/82 91 Room Air Intake and Output 03/10/17 03/10/17 03/11/17 Cumulative From/Thru 15:00 23:00 07:00 03/09/17 18:10 - 03/11/17 06:34 Intake Total 1200 ml 1332 ml 4193 ml Output Total 3600 ml 2300 ml 7150 ml Balance -2400 ml -968 ml -2957 ml Intake Oral 1200 ml 1037 ml 2977 ml IV Total 295 ml 1216 ml Output Urine Total 3600 ml 2300 ml 7150 ml # Bowel Movements 0 0 Exam Gen.- A+ O 3 . Morbidly obese female +/-distress Head-atraumatic/normocephalic Eyes- open conjunctiva clear, pupils equal, nonicteric Mouth- no deformity of lips ENT- ears no deformity, nose no deformity Neck- supple/trach midline CVS- RRR no murmur or gallop Lungs- CTA GI- NABS/NT soft, generous/each pannus Musc- moving 4 no obvious deformity Large dressing over left foot C/D/i Neuro- cranial nerves II through XII intact to gross examination, nonfocal Skin- warm and dry, no rashes/lesions/wounds noted Psych- pleasant and appropriate, she has quite a dramatic affect Lab and Diagnostics Result Diagram: 03/11/17 0504 03/11/17 0504 Microbiology See paper chart, reportedly growing MSSA X-Rays, CTs and MRIs US ABDOMEN, LIMITED: Blair Chandler M.D. on 03/10/2017 at 14:08 No ascites found throughout the peritoneal space. Dictated by: Blair Chandler M.D. on 03/10/2017 at 14:08 Assessment & Plan 66-yo woman presented with weakness, confusion, chills to [facility] 03/09, septic with probable source left lower extremity/osteomyelitis, transferred to [facility] to be seen by Dr. Pineda of podiatry. 03/10 Dr. Pineda needed to be consulted and it is coming to see the patient she is going to be fed today as there is no surgery planned at this point in time. CKs are trending down and eat an EKG and another troponin and an adjusting insulin as this patient is on upwards of 100 units a day and blood sugars are running over 300 while she was nothing by mouth. Treating hyperkalemia with IV fluids in addition to the rhabdo and giving a dose of Kayexalate will follow up labs in the morning. Her anemia is chronic and largely unchanged. Transaminitis likely related to whatever event cause the rhabdo and hope we will continue to trend this prior transaminases have been normal. 03/11 renal function is normalized, hyperkalemia corrected. Nephrology consult noted/appreciated. Rhabdo is greatly improved not totally resolved. EKG is slightly abnormal and patient is in A. fib and troponin somewhat elevated so we will check an echocardiogram. Blood pressure and heart rate were elevated this morning patient had not been getting metoprolol. This error was corrected. Blood sugar still elevated titrating back in NPH I do not believe that she is going to need sleep to 80 units of NPH twice a day. Were up to 30 units. Cellulitis/osteomyelitis L foot, MSSA, on Ancef 2 g q6 03/09- -Dr. Pineda DPM consulted 03/10 -Awaiting cultures from 03/10 debridement Rhabdomyolysis, CK >12,000 U[facility] 03/09, down to 4900 03/10, 2100 03/11 AAKSAH- base Cr 0.7, 1.5 03/10, 0.8 03/11 back to baseline Hyperuricemia- starting allopurinol hyperkalemia, - follow with a.m. labs-Dose Kayexalate 03/10, corrected 03/11 elevated troponin, POA active- need to see current EKG and follow most likely related to rhabdo. Patient is not symptomatic, -EKG subtle abnormalities, check echo Peripheral vascular disease- known chronically occluded superficial femoral artery attempted to be opened by Dr. Campos likely 2015 -s/p intervention [facility] Dr Speedy gli,Rate controlled.ASA 81 mg daily?, metoprolol 75 mg BID, Warfarin dosed by pharmacy, last INR 1.4 on 03/09/2017 6 AM. HTN losartan,Metoprolol tartrate 75 mg by mouth twice a day Diabetes mellitus type II, - BS 250-300/24hrs, will adjust regimen and this is while patient has been primarily nothing by mouth for surgery -Humalog sliding scale insulin while awake with meals, NPH 15 units twice a day added 03/10 blood sugar still low 300s now increasing to 30 units twice a day -Hemoglobin A1c still pending 03/11 -Diabetes education Morbid obesity, present on admission, active- BMI 50.8, Dietitian/clay artisan consultation Chronic Hypothyroidism, POA, stable- 50 g levothyroxine by mouth daily Elevated transaminases - acute/new certainly steatohepatitis is not helping this but's is a new problem. Correcting continued trend every few days Anemia - Hg baseline 9-10 Prophylaxis- DVT patient on warfarin therapeutic, managed by pharmacy, GI on pantoprazole Disposition- full code from home GI Prophylaxis: Not indicated VTE Prophylaxis: Theraputic Anticoag with Warfarin VTE Mechanical Devices: Intermittant Pneumatic CD Resuscitation Status: CPR: Attempt Resuscitation Goran Forte MD Mar 11, 2017 17:19
[2017-03-11] MEDS ORDERED: CALCIUM CARBONATE PO SCH (17:30)
[2017-03-11] MEDS ORDERED: VITAMIN D3 PO SCH (17:30)
[2017-03-11] MEDS ORDERED: LORazepam 1 mg Tablet PO ONE (19:03)
[2017-03-11] MEDS: LORazepam 1 mg Tablet PO PRN (19:03)
[2017-03-11 20:05] VITALS: BP 142/78; PULSE 89; RESP 19; O2SAT 94
[2017-03-11] MEDS ORDERED: Insulin Human NPH 100 Unit/mL 3 mL Inj SUBQ SCH (20:30)
[2017-03-11] MEDS ORDERED: SODIUM FLUORIDE DENTAL SCH (20:30)
[2017-03-11] MEDS: DULoxetine 30 mg DR Capsule PO SCH (21:00)
--- NOTE | 2017-03-11 21:39 | PROG NOTE ---
[address] [address] PROGRESS NOTE PATIENT: TIM RODGERS : 1950 MR#: [id number] ADMIT: 03/09/2017 JOB ID: [id number] DATE: 03/11/2017 The patient is seen for followup of infected ulcer, left foot. She states that she had terrible pain since the incision and drainage yesterday. She rates it as 7/10. She states she is also getting aches and pains in other parts of her body. She complains that she is not getting her usual pain medication and is only receiving oxycodone with acetaminophen. She denies any fever, chills. PHYSICAL EXAMINATION: Blood pressure 153/75, pulse 104, respiratory rate 20, temperature 36.7, pulse oximetry 94% on room air. Lower extremity exam: Dressing intact with a small amount of serosanguineous drainage. There is decreased erythema and swelling around the ulcer, plantar 4th metatarsophalangeal joint. There is serous drainage. No pustular discharge is noted even with manual pressure around the ulcer. There is approximately 80% fibrin tissue. Granulation tissue is pink and firm. There is bone exposed within the wound base. However, it is hard with palpation. There is no pain with palpation around these ulcers. Neurovascular status is intact to all toes of the left foot. LABORATORY DATA: WBC 6.3, hemoglobin 10, hematocrit 31.2, platelets 182. Neutrophils 71.2. Sodium 139, potassium 4.9, chloride 102, carbon dioxide 18, BUN 25 creatinine 0.85. Estimated GFR 96. Glucose 265. Calcium 8.4, iron 50, TIBC 217, 23% saturation. Unsaturated iron binding 166.7, total bilirubin 0.6. AST 155, ALT 246, alkaline phosphatase 135. Total creatine kinase 2111. Troponin 0.085. Total protein 6. Albumin 3.2. PT 12, INR 1.12. Microbiology culture from March 10, left foot Gram stain: No polys, no organisms seen. ASSESSMENT/PLAN: 1. Cellulitis with probable osteomyelitis, 4th metatarsophalangeal joint. Is improved. The erythema and swelling is improved from yesterday and there is no pustular discharge noted. I reviewed the Gram stain and there has so far been no polys or organisms seen. The patient, however, has been on antibiotics. Therefore the culture may not be showing growth. We will continue with [facility] as the acute symptoms of infection appear to be resolving. I would recommend long-term IV antibiotics for treatment for osteomyelitis, however, as there is bone exposed at the wound base. I will recheck the foot tomorrow and if the acute symptoms are resolved the patient can be either sent home with home IV therapy or transferred to a [facility] facility. 2. Diabetic neuropathic ulceration, left 4th metatarsophalangeal joint status post incision and drainage. The ulcer appears slightly smaller today and the nonviable and fibrotic tissue was selectively debrided from the base of the wound using a tissue nipper. There was no bleeding noted. The patient tolerated the procedure well. The ulceration was redressed using Hydrogel, 4 x 4 gauze, and Kerlix. Recommended that the dressings to be changed daily. 3. Type 2 diabetes with peripheral neuropathy. The patient can weightbear on her left foot as tolerated and a diabetic shoe.
[2017-03-12] MEDS: CeFAZolin Inj 2 GM in IV Premix 1 EACH IV SCH ×4 (03:11→20:22)
--- NOTE | 2017-03-12 03:20 | NUR ---
Activity/Pain Patient in bed all of shift so far. Noted to be doing arm and leg exercises independently. Denies pain or discomfort, received scheduled PO Tylenol. Resting with eyes closed upon reassessments. 2L NC placed while sleeping, pt desat'ing down to low 80s. Up to 98% with 2L NC.
[2017-03-12 05:10] VITALS: BP 137/82; PULSE 94; RESP 19; O2SAT 99
[2017-03-12 07:28] LABS: INR 1.15 ratio
--- NOTE | 2017-03-12 08:40 | PCM.PHAPRO ---
Progress Date of Service: Mar 12, 2017 Warfarin dosing Date Mar 10Mar 11-Mar 12 INR 1.27 1.24 1.12 1.15 INR change -0.03 -0.12 0.03 Warf Dose unknown HOLD 5MG 5MG Guillaume Lemus Mar 12, 2017 08:40
[2017-03-12] MEDS: Pantoprazole 40 mg ER24 Tablet PO SCH ×2 (08:41→16:49)
[2017-03-12] MEDS: Sodium Chloride LOK Flush 10 mL Syringe IVFLUSH SCH ×2 (08:42→16:11)
[2017-03-12] MEDS: Fluticasone 0.05% 15 Spray/2 Gm 16 Gm Nasal Spray NASAL SCH (08:43)
[2017-03-12] MEDS: Nystatin 100,000 Unit/Gm 15 Gm Powder TOPICAL SCH ×3 (08:43→20:27)
[2017-03-12] MEDS: Insulin LISPRO 300 Unit/3 mL Inj SUBQ SCH ×5 (08:44→22:00)
[2017-03-12 09:54] VITALS: BP 138/71; PULSE 89; RESP 20; O2SAT 100
--- NOTE | 2017-03-12 10:02 | DRSVH ---
[facility] [address] [place] [address] Echocardiogram Report Name: TIM RODGERS JStudy Date: Height: 67 in Hospital Exam Location: [facility] Weight: 329 lb Gender: Female BSA: 2.5 m2 : 1950 Age: 66 yrs BP: 153/75 mmHg Reason For Study: ELEVATED TROPONIN Ordering Physician: ELIZABETH TEAM Performed By: Hernandez Diaz Referring Physician: Jersey DENT Interpretation Summary Please don't finalize-- Definity contrast used. 1) Mild concentric left ventricular hypertrophy with normal size and borderline reduced systolic function (EF 50-55%). 2) No focal wall motion abnormalities. 3) Mildly dilated right ventricular with mildly reduced function. 4) Moderate tricuspid regurgitation present. 5) Pulmonary hypertension present, estimated systolic pulmonary pressure of 55mmHg. 6) Hypertension present during the study (BP 153/75). 7) No prior Echo available for comparison. Procedure: A two-dimensional transthoracic echocardiogram with color flow and Doppler was performed. The study quality was technically difficult. There is no prior echocardiogram noted for this patient. A contrast injection of Definity was performed to improve assessment of LV function. The patient was in atrial fibrillation with controlled ventricular rate during the exam. The patient had a heart rate of 85-106 beats per minute. Left Ventricle: The left ventricle is normal in size. Left ventricular wall thickness is mildly increased. The ejection fraction is estimated to be 50- 55%. There are no focal wall motion abnormalities. Assessment of diastolic parameters suggests a pseudonormalization pattern, consistent with elevated filling pressures. Right Ventricle: The right ventricle is mildly dilated. Right ventricular systolic function is mildly reduced. Atria: Both atria are normal in size. The interatrial septum is intact with no evidence for an atrial septal defect. Mitral Valve: There is moderate mitral annular calcification. The mitral valve leaflets are mildly calcified. The mitral valve chordae are thickened and/or calcified. There is trace mitral regurgitation. Aortic Valve: The aortic valve is trileaflet. The aortic valve is mildly calcified. Leaflet mobility is minimally reduced. There is no aortic valve stenosis. There is trace aortic regurgitation. Tricuspid Valve: The tricuspid valve leaflets are thin and pliable. There is moderate tricuspid regurgitation. The right ventricular systolic pressure is estimated at 55 mmHg assuming a right atrial pressure of 8 mm Hg. Pulmonic Valve: The pulmonic valve is normal in structure and function. There is trace pulmonic regurgitation. Great Vessels: The aortic root is normal size. The ascending aorta is at the upper limits of normal in size. The pulmonary artery is normal size. The IVC is dilated (diameter is greater than 2.1 cm) yet it collapses greater than 50% with a sniff. This suggests a right atrial pressure of 8 mm Hg. Pericardium/ Pleura There is no pericardial effusion. There is no pleural effusion. MMode/2D Measurements & Calculations LVIDd: 4.1 cm LA dimension: 4.4 cm RA long axis LVOT diam LVIDs: 2.6 cm FS: 37.1 % LA A2 area: 22.3 cm RA area Ao root diam EPSS: 0.36 cm LA A4 area: 25.1 cm IVSd: 1.1 cm LA length (vol): 5.8 cm : 17.5 cm Aortic Jxn LVPWd: 1.2 cm LA vol: 81.4 ml RA vol: 48.3 ml LA vol index RA asc Aorta : 19.3 mm2 Diam: 3.6 cm IVC diam: 2.3 cm LV shafer. diameter/BSA LV sys. diameter/BSA RVD1 (basal) RVD2 (mid) (cm/m^2): 1.6 (cm/m^2): 1.0 : 4.3 cm Doppler Measurements & Calculations Ao V2 max: 180.8 cm/secMV E max freddie MV E/A: 305.0 TR max freddie Ao max P.2 mmHg : 168.4 cm/sec Med Peak E' Freddie : 339.5 cm/sec Ao mean P.1 mmHg MV A max freddie TR max PG LVOT Max Freddie : 0.55 cm/sec E/E' med: 26.5 : 46.7 mmHg : 113.4 cm/sec Lat Peak E' Freddie PA V2 max MVA(VTI): 2.9 cm2 : 110.8 cm/sec LUI(I,D): 2.3 cm E/E' lat: 19.4 PA mean PG sev ratio: 0.71 E/e' average PA Accel Time : 0.07 sec MV V2 mean Ao V2 mean LV V1 max PG PA V2 mean : 104.7 cm/sec : 135.8 cm/sec : 70.6 cm/sec MV mean P.2 mmHg Ao V2 VTI: 35.2 cmLV V1 VTI PA pr(Accel) MV V2 VTI: 27.3 cm : 25.1 cm : 46.5 mmHg MV dec time: 0.20 sec LUI(V,D): 2.0 cm2 LUI indexed to BSA (cm^2/m^2): 0.91 Reading Physician:10:01 AM
[2017-03-12] MEDS: Insulin Human NPH 100 Unit/mL Syringe SUBQ SCH ×2 (11:09→21:22)
--- NOTE | 2017-03-12 13:06 | PCM.PNMED ---
Subjective Date of Service Mar 12, 2017 Subjective Doing much better, vertical, burning in hands almost immediately improved by Lyrica. No chest pain, no dyspnea, no nausea or vomiting. Exam Vital Signs Vital Sign - Last Date Time Temp Pulse Resp B/P Pulse Ox O2 Delivery O2 Flow Rate FiO2 03/12/17 09:54 36.7 89 20 138/71 100 Nasal Cannula 2.00 Intake and Output 03/11/17 03/11/17 03/12/17 Cumulative From/Thru 15:00 23:00 07:00 03/09/17 18:10 - 03/12/17 05:09 Intake Total 981 ml 724 ml 5898 ml Output Total 900 ml 1250 ml 9300 ml Balance 81 ml -526 ml -3402 ml Intake Oral 794 ml 600 ml 4371 ml IV Total 187 ml 124 ml 1527 ml Output Urine Total 900 ml 1250 ml 9300 ml # Bowel Movements 0 0 0 Exam Gen.- A+ O 3 . Morbidly obese female +/-distress Head-atraumatic/normocephalic Eyes- open conjunctiva clear, pupils equal, nonicteric Mouth- no deformity of lips ENT- ears no deformity, nose no deformity Neck- supple/trach midline CVS-normal rate Lungs-regular nonlabored GI- generous/each pannus Musc- moving 4 no obvious deformity Large dressing over left foot C/D/i Neuro- cranial nerves II through XII intact to gross examination, nonfocal Skin- warm and dry, no rashes/lesions/wounds noted Psych- pleasant and appropriate, she has quite a dramatic affect Lab and Diagnostics Result Diagram: 03/11/17 0504 03/11/17 0504 Microbiology micro from bedside I+D/debridement 03/10 no organisms 03/12 See paper chart, reportedly growing MSSA, X-Rays, CTs and MRIs US ABDOMEN, LIMITED: Blair Chandler M.D. on 03/10/2017 at 14:08 No ascites found throughout the peritoneal space. Dictated by: Blair Chandler M.D. on 03/10/2017 at 14:08 12-lead ECG Rate 122, QTC 476 and currently reviewed by Reanna 03/10 . Atrial fibrillation . Low voltage, precordial leads . Consider anterior infarct Cardiac Echo Impressions Echocardiogram Report: Savi 03/11 Please don't finalize-- Definity contrast used. 1) Mild concentric left ventricular hypertrophy with normal size and borderline reduced systolic function (EF 50-55%). 2) No focal wall motion abnormalities. 3) Mildly dilated right ventricular with mildly reduced function. 4) Moderate tricuspid regurgitation present. 5) Pulmonary hypertension present, estimated systolic pulmonary pressure of 55mmHg. 6) Hypertension present during the study (BP 153/75). 7) No prior Echo available for comparison. Assessment & Plan 66-yo woman presented with weakness, confusion, chills to [facility] 03/09, septic with probable source left lower extremity/osteomyelitis, transferred to [facility] to be seen by Dr. Pineda of podiatry. 03/10 Dr. Pineda needed to be consulted and it is coming to see the patient she is going to be fed today as there is no surgery planned at this point in time. CKs are trending down and eat an EKG and another troponin and an adjusting insulin as this patient is on upwards of 100 units a day and blood sugars are running over 300 while she was nothing by mouth. Treating hyperkalemia with IV fluids in addition to the rhabdo and giving a dose of Kayexalate will follow up labs in the morning. Her anemia is chronic and largely unchanged. Transaminitis likely related to whatever event cause the rhabdo and hope we will continue to trend this prior transaminases have been normal. 03/11 renal function is normalized, hyperkalemia corrected. Nephrology consult noted/appreciated. Rhabdo is greatly improved not totally resolved. EKG is slightly abnormal and patient is in A. fib and troponin somewhat elevated so we will check an echocardiogram. Blood pressure and heart rate were elevated this morning patient had not been getting metoprolol. This error was corrected. Blood sugar still elevated titrating back in NPH I do not believe that she is going to need sleep to 80 units of NPH twice a day. We're up to 30 units. 03/12 patient clinically much better she is up at bedside we will discontinue her Quiles catheter. Still not clear what happened with her blood sugars are she is not getting her sliding scale with the prandially this is been requested. In the meantime patient is weightbearing as tolerated with a offloading shoe she will likely be discharging home with IV antibiotics which ones not clear. For now we are continuing IV abx here till definitive therapy decided. Diabetes mellitus type II, - BS 250-300/24hrs, will adjust regimen and this is while patient has been primarily nothing by mouth for surgery -Humalog sliding scale insulin while awake with meals, NPH 15 units twice a day added 03/10 blood sugar still low 300s now increasing to 30 units twice a day , 8U prandial+SS added 03/12 -Hemoglobin8.0 03/10 Cellulitis/osteomyelitis L foot, MSSA, on Ancef 2 g q6 03/09- -Dr. Pineda DPM consulted 03/10, cultures from 03/10 (-) 03/12 Rhabdomyolysis, CK >12,000 [facility] 03/09, down to 4900 03/10, 2100 03/11 AAKASH- base Cr 0.7, 1.5 03/10, 0.8 03/11 back to baseline Hyperuricemia- starting allopurinol hyperkalemia, - follow with a.m. labs-Dose Kayexalate 03/10, corrected 03/11 elevated troponin, POA active- need to see current EKG and follow most likely related to rhabdo. Patient is not symptomatic, -EKG subtle abnormalities, -Echo 03/12 largely normal as above -Would benefit from outpatient risk stratification with Myoview no further workup in hospital this time. Peripheral vascular disease- known chronically occluded superficial femoral artery attempted to be opened by Dr. Campos likely 2016 -s/p intervention [facility] Dr Speedy gil,Rate controlled.ASA 81 mg daily?, metoprolol 75 mg BID, Warfarin dosed by pharmacy, last INR 1.4 on 03/09/2017 6 AM. HTN losartan,Metoprolol tartrate 75 mg by mouth twice a day Morbid obesity, present on admission, active- BMI 50.8, Dietitian/regional facilities manager consultation Chronic Hypothyroidism, POA, stable- 50 g levothyroxine by mouth daily Elevated transaminases - acute/new certainly steatohepatitis is not helping this but's is a new problem. Correcting continued trend every few days Anemia - Hg baseline 9-10 Prophylaxis- DVT patient on warfarin therapeutic, managed by pharmacy, GI on pantoprazole Disposition- full code from home GI Prophylaxis: Not indicated VTE Prophylaxis: Theraputic Anticoag with Warfarin VTE Mechanical Devices: Intermittant Pneumatic CD Resuscitation Status: CPR: Attempt Resuscitation Goran Forte MD Mar 12, 2017 13:06
--- NOTE | 2017-03-12 13:36 | NUR ---
Social Work- Brief Note Data: EMR reviewed. Pt is a 66 year old female admitted 03/09/17 for foot osteomylitis per H&P. Pt's insurance is [employer] [facility]. Pt's PCP is Vel Lennon DO. Pt confirms that she does not have MCR, she has commercial [employer] plan. Pt's NOK is sister Ingrid Jacobs, . Pt's readmit risk score is 6- high risk. SW acknowledges SNF order. SW met with pt at bedside regarding discharge plan, SW role explained. Pt alert and oriented x3. Pt resides in [place] in a manufactured home on [address] where she is independent at baseline. Pt uses a cane at home and has strategically placed chairs around her home to assist with ambulation throughout her home. Pt also has a walker available. Pt does not drive. Pt receives Meals on Wheels and and is familiar with services provided by [facility]. Pt is currently open with [facility] for wound care. Patricia, [facility] liaison, informed [facility] that pt's care needs are beyond the scope of and they are not able to continue servicing pt. SW spoke with pt at bedside regarding this and SNF placement. Pt is agreeable to SNF placement and requested [facility]. After making the referral to [facility], [facility] was notified that pt is on their do not admit list and they are unable to accept pt. SW informed pt that [facility] is not an option at this time and pt became irritable stating that she is not going to any other [facility] SNF choice list was left at bedside for pt to review. SW explained that SNF is her medical team's recommendation at this time. Pt is very unhappy regarding this. SW questioned pt what she would be able to do at home since PT assessed her and she is only able to stand 5 minutes and sit on the EOB for 3 minutes. SW also asked her about IV abx and wound care needs. Pt informed [facility] that she has experience managing her IV abx at home with an infusion company. Pt did not answer physical mobility question. Pt is adamant that HH RN will be able to transportation operations manager her wound care needs despite [facility] stating otherwise. SW will continue to speak with pt regarding SNF placement, SW will continue to follow. Assessment: Pt for whom SNF is medically necessary, which pt declines at this time as [facility] is unable to accept her. Plan: Pt will require IV abx at discharge, type pending. Pt is 2 person assist and only stood five minutes with fww. Pt agreeable to SNF only if it is [facility], which is not an option at this time. Pt has SNF choice list at bedside, SW will continue to follow. Maddison Feliz [facility]
--- NOTE | 2017-03-12 13:41 | PROG NOTE ---
[address] [address] PROGRESS NOTE PATIENT: TIM RODGERS : 1950 MR#: [id number] ADMIT: 03/09/2017 JOB ID: [id number] DATE: 03/12/2017 SUBJECTIVE: The patient is seen for infected ulcer, left foot. She states that her pain is much better today. She was put on Lyrica and neuropathy has improved. She denies any fever or chills. PHYSICAL EXAMINATION: Blood pressure 130/71, pulse 89, respirations 20, temperature 36.7, pulse oximetry 100% via nasal cannula at 2 L. Lower extremity examination: Dressing intact with a small amount of serosanguineous drainage. There is decreasing erythema and swelling around the ulcer plantar 4th metatarsophalangeal joint. The ulcer measured approximately 1 cm x 0.4 cm x 0.4 cm in depth. There is bone exposed within the wound base. However, it appears to be hard to palpation. The granulation tissue is pink and firm. A small amount of serosanguineous drainage. There is no pustular discharge or fluctuance noted. Neurovascular status intact to all toes of the left foot. LABORATORY DATA: PTT 12.3, INR 1.15. Wound culture from March 10, 2017. Aerobic culture shows insufficient growth. Culture is re-incubated. ASSESSMENT AND PLAN: 1. Cellulitis with osteomyelitis, left foot. Her acute symptoms of infection are resolving well with the Ancef. I reviewed the culture results and there has not been any significant growth. As her blood cultures were positive for methicillin sensitive Staphylococcus aureus, I recommend that she be discharged with an antibiotic that would cover this including Ancef. However, there may be more convenient once a day dosing if the patient goes home and has to administer it herself. She states that she has had home IV therapy in the past with a PICC line and was able to manage it without problems. I would recommend at least six weeks of IV antibiotics. 2. 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 The nonviable and fibrotic tissue was selectively debrided from base of the wound using a tissue nipper. There was a minimal amount of bleeding. Hemostasis achieved with pressure. The patient tolerated the procedure well. The ulceration was redressed using Hydrogel and Kerlix and tape. I recommend the dressing be changed daily. Once the patient is discharged, I recommend that she should follow up at the [facility] within one week. 3. Type 2 diabetes with peripheral neuropathy. It appears that her diabetic neuropathy is responding well to Lyrica.
--- NOTE | 2017-03-12 17:24 | NUR ---
Blood Sugar/Insulin COLT provider communication order at 1303 to give parandial dose with correctional dose of insulin with meals but no order in eMAR. Paged. Blood sugar before lunch 289. Patient had ice cream with lunch. Blood sugar before dinner 294. Only order for correctional without nutritional dosage. paged. Awaiting orders for nutritional dose of insulin. Addendum: 03/12/17 at 0042 by DARIEN MCKEON RN Order for parandial short acting insulin ordered. To be given with meals.
--- NOTE | 2017-03-12 17:52 | NUR ---
Sore Buttocks Patient reported having a sore buttocks today when working with physical therapy. Transferred to chair from bed and sat in chair for a couple hours. Patient reports still having a sore buttocks while sitting in the chair and states "it's in the very back." but refused to get back to bed to lie on her side to relieve pressure. Assisted to edge of chair to attempt to relieve pressure on sacrum. No redness or open areas seen. Continuing to encourage turning.
[2017-03-12] MEDS ORDERED: Sodium Chloride LOK Flush 10 mL Syringe IVFLUSH PRN ×2 (17:55)
[2017-03-12 19:49] VITALS: BP 159/85; PULSE 90; RESP 16; O2SAT 99
[2017-03-12] MEDS: DULoxetine 30 mg DR Capsule PO SCH (20:27)
[2017-03-13] MEDS: Sodium Chloride LOK Flush 10 mL Syringe IVFLUSH SCH ×3 (00:04→16:47)
--- NOTE | 2017-03-13 01:09 | NUR ---
Pain This evening patient continues to complain of buttock pain. Patient has been repositioned from side to side as well as up to the chair for a few hours tonight. At approx 0000 patient begins of complain of left foot pain, and rates it a 5/10. 5mg of oxycodone PO given. Left foot repositioned and elevated on pillow to provide comfort and to reduce swelling. Upon reassessment patient is sleeping and appears comfortable. Will continue to monitor and continue Q1 hour checks.
[2017-03-13] MEDS: CeFAZolin Inj 2 GM in IV Premix 1 EACH IV SCH ×2 (02:57→10:22)
[2017-03-13 06:15] VITALS: BP 155/89; PULSE 92; RESP 18; O2SAT 99
[2017-03-13 06:26] LABS: INR 1.43 ratio
--- NOTE | 2017-03-13 08:37 | PCM.PHAPRO ---
Progress Date of Service: Mar 13, 2017 Warfarin dosing INR = 1.43 Pt continues warfarin for afib, goal INR 2-3. INR subtherapeutic today. Will give warfarin 5mg PO tonight. INR ordered for am. Pharmacy will follow up. Date Mar 10Mar 11Mar 12-Mar 13 INR 1.27 1.24 1.12 1.15 1.43 INR change -0.03 -0.12 0.03 0.28 Warf Dose unknown HOLD 5MG 5MG 5mg Toshia Hilliard S PharmD Mar 13, 2017 08:37
[2017-03-13] MEDS: Pantoprazole 40 mg ER24 Tablet PO SCH ×2 (10:20→16:46)
[2017-03-13] MEDS: Insulin LISPRO 300 Unit/3 mL Inj SUBQ SCH ×6 (10:21→22:00)
[2017-03-13] MEDS: Insulin Human NPH 100 Unit/mL Syringe SUBQ SCH ×2 (10:24→22:11)
[2017-03-13] MEDS: Nystatin 100,000 Unit/Gm 15 Gm Powder TOPICAL SCH ×3 (10:24→20:26)
[2017-03-13] MEDS: Fluticasone 0.05% 15 Spray/2 Gm 16 Gm Nasal Spray NASAL SCH (10:25)
--- NOTE | 2017-03-13 11:05 | NUR ---
Off unit Pt taken to PICC suite with ADELA Minaya at 1045. Antibiotics infusing. STEVE, IVORY, A&O x 3. Pain controlled 12/27.
[2017-03-13] MEDS ORDERED: Insulin Human NPH 100 Unit/mL Syringe SUBQ ONE (12:45)
--- NOTE | 2017-03-13 12:49 | PCM.PNMED ---
Subjective Date of Service Mar 13, 2017 Subjective Patient does not tolerate complaints of chest pain, dyspnea, nausea or vomiting. She probably announced me that she had a couple bowel movements since yesterday. And her diabetic neuropathy issues are greatly improved on Lyrica! Exam Vital Signs Vital Sign - Last Date Time Temp Pulse Resp B/P Pulse Ox O2 Delivery O2 Flow Rate FiO2 03/13/17 09:20 Room Air 03/13/17 06:15 36.6 92 18 155/89 99 03/12/17 09:54 2.00 Intake and Output 03/12/17 03/12/17 03/13/17 Cumulative From/Thru 15:00 23:00 07:00 03/09/17 18:10 - 03/13/17 06:23 Intake Total 2853 ml 848 ml 9599 ml Output Total 800 ml 900 ml 19198 ml Balance 2053 ml -52 ml -1401 ml Intake Oral 1648 ml 700 ml 6719 ml IV Total 1205 ml 148 ml 2880 ml Output Urine Total 800 ml 900 ml 69488 ml # Bowel Movements 1 1 2 Exam Gen.- A+ O 3 . Morbidly obese female +/-distress Head-atraumatic/normocephalic Eyes- open conjunctiva clear, pupils equal, nonicteric Mouth- no deformity of lips ENT- ears no deformity, nose no deformity Neck- supple/trach midline CVS-normal rate Lungs-regular nonlabored GI- generous/each pannus Musc- moving 4 no obvious deformity Large dressing over left foot C/D/i Neuro- cranial nerves II through XII intact to gross examination, nonfocal Skin- warm and dry, no rashes/lesions/wounds noted Psych- pleasant and appropriate, she has quite a dramatic affect Lab and Diagnostics Result Diagram: 03/11/17 0504 03/11/17 0504 Microbiology micro from bedside I+D/debridement 03/10 no organisms 03/12 See paper chart, reportedly growing MSSA, X-Rays, CTs and MRIs US ABDOMEN, LIMITED: Blair Chandler M.D. on 03/10/2017 at 14:08 No ascites found throughout the peritoneal space. Dictated by: Blair Chandler M.D. on 03/10/2017 at 14:08 12-lead ECG Rate 122, QTC 476 and currently reviewed by Reanna 03/10 . Atrial fibrillation . Low voltage, precordial leads . Consider anterior infarct Cardiac Echo Impressions Echocardiogram Report: Savi 03/11 Please don't finalize-- Definity contrast used. 1) Mild concentric left ventricular hypertrophy with normal size and borderline reduced systolic function (EF 50-55%). 2) No focal wall motion abnormalities. 3) Mildly dilated right ventricular with mildly reduced function. 4) Moderate tricuspid regurgitation present. 5) Pulmonary hypertension present, estimated systolic pulmonary pressure of 55mmHg. 6) Hypertension present during the study (BP 153/75). 7) No prior Echo available for comparison. Assessment & Plan 66-yo woman presented with weakness, confusion, chills to [facility] 03/09, septic with probable source left lower extremity/osteomyelitis, transferred to [facility] to be seen by Dr. Pineda of podiatry. 03/10 Dr. Pineda needed to be consulted and it is coming to see the patient she is going to be fed today as there is no surgery planned at this point in time. CKs are trending down and eat an EKG and another troponin and an adjusting insulin as this patient is on upwards of 100 units a day and blood sugars are running over 300 while she was nothing by mouth. Treating hyperkalemia with IV fluids in addition to the rhabdo and giving a dose of Kayexalate will follow up labs in the morning. Her anemia is chronic and largely unchanged. Transaminitis likely related to whatever event cause the rhabdo and hope we will continue to trend this prior transaminases have been normal. 03/11 renal function is normalized, hyperkalemia corrected. Nephrology consult noted/appreciated. Rhabdo is greatly improved not totally resolved. EKG is slightly abnormal and patient is in A. fib and troponin somewhat elevated so we will check an echocardiogram. Blood pressure and heart rate were elevated this morning patient had not been getting metoprolol. This error was corrected. Blood sugar still elevated titrating back in NPH I do not believe that she is going to need sleep to 80 units of NPH twice a day. We're up to 30 units. 03/12 patient clinically much better she is up at bedside we will discontinue her Quiles catheter. Still not clear what happened with her blood sugars are she is not getting her sliding scale with the prandially this is been requested. In the meantime patient is weightbearing as tolerated with a offloading shoe she will likely be discharging home with IV antibiotics which ones not clear. For now we are continuing IV abx here till definitive therapy decided. HTNp- losartan 50mg ,Metoprolol tartrate 75 mg by mouth twice a day- titrating in 03/13 uncontrolled Diabetes mellitus type II, - titrating back insulin for hyperglycemia, protocol not being followed blood sugars uncontrolled 03/13 order written to follow protocol. -SS, NPH 45Uam, 30U hs, 15U prandial+SS added 03/13 -Hemoglobin8.0 03/10 Cellulitis/osteomyelitis L foot, MSSA, on Ancef 2 g q6 03/09- -Dr. Pineda DPM consulted 03/10, cultures from 03/10 (-) 03/12 Rhabdomyolysis, CK >12,000 U[facility] 03/09, down to 4900 03/10, 2100 03/11 AAKASH- base Cr 0.7, 1.5 03/10, 0.8 03/11 back to baseline Hyperuricemia- starting allopurinol hyperkalemia, - follow with a.m. labs-Dose Kayexalate 03/10, corrected 03/11 elevated troponin, POA active- need to see current EKG and follow most likely related to rhabdo. Patient is not symptomatic, -EKG subtle abnormalities, -Echo 03/12 largely normal as above -Would benefit from outpatient risk stratification with Myoview no further workup in hospital this time. Peripheral vascular disease- known chronically occluded superficial femoral artery attempted to be opened by Dr. Campos likely 2015 -s/p intervention [facility] Dr Speedy gil,Rate controlled.ASA 81 mg daily?, metoprolol 75 mg BID, Warfarin dosed by pharmacy, last INR 1.4 on 03/09/2017 6 AM. 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 Correcting continued trend every few days Anemia - Hg baseline 9-10 Prophylaxis- DVT patient on warfarin therapeutic, managed by pharmacy, GI on pantoprazole Disposition- full code from home GI Prophylaxis: Not indicated VTE Prophylaxis: Theraputic Anticoag with Warfarin VTE Mechanical Devices: Intermittant Pneumatic CD Resuscitation Status: CPR: Attempt Resuscitation Goran Forte MD Mar 13, 2017 12:49
--- NOTE | 2017-03-13 14:53 | NUR ---
Social Work- Continued D/C Planning Data: EMR reviewed. Pt is on day 4 of hospitalization for foot osteomylitis per H&P. PELON met with pt at bedside regarding SNF recommendation again. Pt continues to be unwilling to discharge to SNF. Pt is fixated on leaving her home affairs unresolved, including bills and mail. SW asked pt if there was anyone able to help her manage these things, pt denies this. SW spoke at length with pt about a necessary safe discharge plan and pt's multiple needs- likely 6 weeks of IV abx, wound dressing changes, and increased mobility with PT. PT has seen pt, pt was able to ambulate 12 feet with pickup walker, unable to complete stair training at this time. Pt has one step to enter her home with no railing. PT feels that pt would benefit from SNF for continued strengthening and mobility. Pt complains of back and hip pain, which when questioned by VULNERABILITY RESEARCHER pt states this is chronic and she is able to adapt at home. Pt feels strongly that she is at an appropriate level of mobility to return home. VULNERABILITY RESEARCHER attempted to explain the PT and MD feel otherwise, pt was not agreeable. SW discussed pt's wound care needs. Pt believes that Tiffany, RN from [facility], would be able to do her wound care just like she has in the past. VULNERABILITY RESEARCHER re-stated that [facility] is not able to meet pt's needs at this time (per phone call from [facility]). SW explored with pt if she would be willing to use another [employer] company, but pt declined [facility] at this time. Pt fixated on [facility]'s inability to meet pt's needs. In an attempt to clarify the situation, VULNERABILITY RESEARCHER placed T/C to Patricia, [facility] liaison, regarding pt care needs. VULNERABILITY RESEARCHER faxed pt's clinicals from this admission for [facility] to review at length. VULNERABILITY RESEARCHER requested Patricia call SW Tuesday with more information. Pt is likely to require 6 week course of IV abx. Pt is determined to complete this therapy at home through an infusion company, which she states she has done in the past. Pt has PICC line placed at this time. Pt has not made a choice regarding home infusion, as VULNERABILITY RESEARCHER is unsure this is a feasible plan for pt and will consult with MD. Pt's infusion benefits will need to be checked. Type of abx will need to be determined for sure as well. SW again explained that SNF is her medical team's recommendation at this time. Pt continues to be unhappy regarding this. [facility] is unable to accept pt at this time. Pt remains unwilling to discharge to any other SNF's at this time. At this time, the only discharge plan that pt deems acceptable is discharge home with HH for wound care and potentially PT and home infusion IV abx. SW to discuss with medical team the feasibility of this. SW will continue to follow. Assessment: Pt for whom SNF is medically necessary, which pt declines at this time. Plan: SW again explained that SNF is her medical team's recommendation at this time. Pt continues to be unhappy regarding this. [facility] is unable to accept pt at this time. Pt remains unwilling to discharge to any other SNF's at this time. At this time, the only discharge plan that pt deems acceptable is discharge home with [facility] for wound care and potentially PT and home infusion IV abx. SW to discuss with medical team the feasibility of this. SW will continue to follow. Maddison Feliz, VULNERABILITY RESEARCHER
--- NOTE | 2017-03-13 17:28 | CONS ---
[address] [address] CONSULTATION REPORT PATIENT: TIM RODGERS : 1950 MR#: [id number] ADMIT: 03/09/2017 JOB ID: [id number] DATE OF SERVICE: 03/13/[address] Forte for this timely consult. REASON FOR CONSULTATION: Severe left diabetic foot infection. HISTORY OF PRESENT ILLNESS: The patient is a 66-year-old woman whom I know from the long admission and outpatient complications which occurred back in 2014 and 2015. She is an extremely complex woman with a history of longstanding severe diabetes mellitus including neuropathy and retinopathy. She also has peripheral vascular disease and has had both open revascularization as well as endovascular work done to improve her flow. She has also had osteomyelitis involving the left foot and has chronic back pain. She also suffers from bipolar disorder. During 2015, we attempted to treat her with home IV antibiotics for a serious diabetic foot infection and this proved to be disastrous. The patient apparently lives in a very unhygienic situation where there were mice and food debris and other debris around and it was not clear at all that she was able to administer her IV antibiotics. Eventually, the home infusion company simply refused to continue her with IV therapy. It was necessary for her to come back into the hospital. With that as a background, the patient was readmitted on March 10, three days ago, complaining of increased pain in her left foot. The home health aide who visited her house apparently found that she was unable to ambulate and was becoming confused. The patient said she had a flu-like illness which started on or about March 06, that it simply has gotten worse. She states she told the home health people as well as the admitting staff that she had fevers, chills, sweats and again that it became progressively worse. She is a poor historian, but was able to say that her left foot may have been bothering her a bit more than baseline at the time, and also states she has had some intermittent pain in her right foot as well. Since admission, now four days ago, the patient has been receiving antibiotics and reports that she is dramatically better with resolution of all those flu-like symptoms and states unequivocally that she is now feeling much better. Note that as I review the records more, the picture is becoming a little bit clearer, however. Apparently on March 09, the home health nurse recommended the patient be taken to the hospital and, in fact, she was admitted to [facility] where apparently blood cultures were done which are reportedly positive. She also had an MRI scan that showed what appeared to be osteo and was subsequently transferred here. Some of this is very unclear to me as the patient is not a good historian. In any event, she states that she is now feeling much improved. She underwent an incision and drainage by Dr. Pineda on the and was found to have probable osteomyelitis with pus coming from the 4th metatarsophalangeal joint on the left. Dr. Pineda debrided nonviable and fibrotic tissue from the area. Dr. Pineda subsequently did some additional debridement yesterday, and does not plan much in the way of additional surgery at this time and believes that a long course of antibiotics is indicated because she had positive blood cultures at the [facility]. Review of the records from the [facility] from the indicates that there were in fact blood cultures which were positive for MSSA. PAST MEDICAL HISTORY: 1. Diabetes mellitus. a. Severe neuropathy. b. Chronic renal insufficiency. c. History of retinopathy. 2. Peripheral vascular disease status post multiple revascularization procedures. 3. Chronic right foot osteomyelitis, according to the notes from Dr. Pineda. 4. Left foot osteomyelitis as diagnosed during this infection with history of same diagnosis in the past. 5. Hypertension. 6. GERD. 7. Chronic lower back pain. 8. Bipolar disorder. 9. 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 SOCIAL HISTORY: The patient once again lives by herself in a small home [place]. She does not smoke or drink. FAMILY HISTORY: Negative for TB in 1st or 2nd-degree relatives. REVIEW OF SYSTEMS: A rambling review of systems was done. The patient is very hard to pin down or focus on anything but she does state at this point she has no headache, no acute visual changes or sore throat. She has a minimal cough which seems to be improving, by her report. She is not short of breath and has no chest pain. No nausea, vomiting, or diarrhea. No pain with urination. She states she has excellent sensation in both feet which is absolutely not true. She tells me that her home situation is stable, and that she should be able to take care of herself at that location. The remainder of the review of systems is negative. PHYSICAL EXAMINATION: Reveals an afebrile woman, temperature 36.6, pulse 92, respiratory rate 18, blood pressure 155/89, saturating 99% on room air. Her current BMI is 51. The patient is sitting up in a chair during most of the exam. Examination of the head reveals no notable abnormalities. Eyes with slightly pale conjunctivae. Nose normal. Oral cavity: No thrush or hairy leukoplakia. Neck is supple but obese and difficult to examine. Her lungs are clear. Cardiac tones: Distant irregular rate and rhythm. Abdomen: Massively obese, soft, and without obvious organomegaly. She does not have a Quiles catheter. Her extremities are notable for reasonable capillary refill in both feet. She does have diminished pulses, however, but there are barely palpable posterior tibial pulses. Both feet seem to be reasonably well perfused though she has notable venous stasis changes and about 2+ peripheral edema below the knees bilaterally. The right foot has no evident wound or infection at this point, at least externally. On the left foot, there is an open defect underneath at about the 4th metatarsal head location. I did not probe this, but according to notes from Dr. Pineda, this extends to bone. There is no purulence and minimal surrounding erythema. The patient has significantly decreased sensation in both feet. Otherwise, she is neurologically intact. Labs include a white count of 6300, platelet count 182,00. Creatinine 0.85. Her CPK is 4900 when she came in and on the it was down to 2100, showing significant improvement. Hemoglobin A1c 8.0 on this admission. Micro studies from here include a culture of the foot which is growing Staph aureus and enterococcus. Micro cultures from [facility] indicate MSSA in the blood stream. Review of the cultures going back a couple years here shows in the past she has had both VRE and MRSA. IMPRESSION: This is a very complex patient and one of the difficulties in working up the patient is that her history tends to be wildly tangential and difficult to focus, and this is a function undoubtedly of her longstanding bipolar disorder. She has very severe and recurrent diabetic foot infections and this would seem to be another in a series. The problem here is that we have positive blood cultures for Staphylococcus aureus. This will require a standardized workup which will need to be rigorous to make sure we have a good outcome. In addition, she has significant problems with home IV antibiotics. Her efforts to send her home with home IV antibiotics a couple years ago ended nothing short of disastrous in this lady with almost three times a day anguished calls from the home infusion company about very poor conditions and unsanitary administration of IV antibiotics, missed doses and other related problems. Placement of this patient for prolonged IV antibiotics will be challenging. RECOMMENDATIONS: 1. 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 2. We await the cultures from here which are growing a Staph and enterococcus from her left foot. 3. A PICC has been placed, unfortunately, without apparent proof that her blood cultures have cleared the Staph aureus that was seen at [facility]. I will order two blood cultures today to be drawn through the PICC and the skin. 4. The patient has had a transthoracic echo which did not show any gross valvular abnormalities. Given that she is going to require six weeks of IV antibiotics anyway for treatment of her osteo, it may be that we can forego the ordinarily indicated transesophageal echo, but if she continues to have positive blood cultures for Staph, we will need to go ahead and get a KEVIN. 5. This patient will likely require placement for her six weeks of IV antibiotics given our problems last year of trying to give her home IV antibiotics. 6. I will discuss this case with Dr. Forte and continue to follow her.
--- NOTE | 2017-03-13 18:15 | NUR ---
Activity Pt back to unit at 1130 from PICC suite. New port port PICC in left upper arm, pressure dressing in place and labeled when it can be used. Pt having increased pain and is upset and crying. Medications given and pt able to calm down. Pt up to BR during shift, but declined to walk more than that with foot wound. Dressing was removed by Dr. Torres and then wound washed out and new dressing applied. Pt upset over discharge plans and spent time listening and helping calm pt. Pt has urinary leakage, mesh underwear with pad in place.
[2017-03-13] MEDS ORDERED: Artificial Tears 15 mL Ophthalmic Solution BOTH_EYES PRN (18:20)
[2017-03-13] MEDS: Codeine-guaiFENesin 10 mL Syrup PO PRN (19:48)
[2017-03-13] MEDS: DULoxetine 30 mg DR Capsule PO SCH (20:27)
[2017-03-13 21:03] VITALS: BP 155/73; PULSE 75; RESP 18; O2SAT 96
[2017-03-14] MEDS: CeFAZolin Inj 2 GM in IV Premix 1 EACH IV SCH ×3 (00:52→17:08)
[2017-03-14] MEDS: Sodium Chloride LOK Flush 10 mL Syringe IVFLUSH SCH ×3 (01:03→17:07)
--- NOTE | 2017-03-14 02:55 | NUR ---
Activity/IV Leak On initial assessment, patient stated that she felt anxious in regards to too much furniture in room. Patient requested to move to chair. Patient sat in chair for several hours. VSS. During antibiotic infusion, right a/c butterfly started to minimally leak. IV was adjusted. VSS. Call light within reach. Care continues.
[2017-03-14 04:05] VITALS: BP 121/72; PULSE 85; RESP 20; O2SAT 96
[2017-03-14 06:04] LABS: INR 1.76 ratio
--- NOTE | 2017-03-14 06:44 | PCM.PHAPRO ---
Progress Warfarin dosing Warfarin Dosing by Pharmacy: -inr is approaching goal of 2-3 for afib. will continue with home dose of warfarin 5mg this evening. Jelly Turpin [facility] Mar 14, 2017 06:44
[2017-03-14] MEDS: Pantoprazole 40 mg ER24 Tablet PO SCH (07:46)
[2017-03-14] MEDS: Fluticasone 0.05% 15 Spray/2 Gm 16 Gm Nasal Spray NASAL SCH (07:46)
[2017-03-14] MEDS ORDERED: LORazepam 1 mg Tablet PO ONE ×2 (07:50→21:03)
[2017-03-14] MEDS: LORazepam 1 mg Tablet PO PRN ×2 (07:50→21:03)
[2017-03-14] MEDS: Nystatin 100,000 Unit/Gm 15 Gm Powder TOPICAL SCH ×3 (07:52→20:54)
[2017-03-14] MEDS: Insulin LISPRO 300 Unit/3 mL Inj SUBQ SCH ×8 (08:09→22:57)
[2017-03-14 09:39] VITALS: BP 128/72; PULSE 64; RESP 20; O2SAT 98
[2017-03-14] MEDS: Insulin Human NPH 100 Unit/mL Syringe SUBQ SCH ×2 (10:01→21:07)
--- NOTE | 2017-03-14 12:19 | NUR ---
Social Work: Readiness for Discharge D: EMR reviewed. Pt is on day 5 of hospitalization. Per MD in AM multi-disciplinary rounds, pt is medically stable and will discharge today. PELON placed T/C to Alfredo at [facility], to determine why pt is not able to return. Per Alfredo, pt was at [facility] last year and Dr. Lennon was not willing to take back due to non-compliance at time of discharge during previous stay. Alfredo states that there is no other documented reason why [facility] is not willing to accept her and per campaign coordinator, [facility] is willing to review pt for acceptance at this point. Alfredo states pt is up to date with billing and has a zero balance. Alfredo confirmed that can send referral and facessheet/provide access and [facility] will review. PELON faxed face sheet and provided access. PELON will continue to follow and update note once [facility] determines if pt can be accepted at this time. A: Pt for whom a SNF has been deemed medically necessary. P: Pt likely to discharge to [facility] pending acceptance and insurance authorization. PELON will await [facility] T/C confirming pt's review and contact [facility] to authorize stay if pt is accepted at [facility]. SRI Hernandez Addendum: 03/14/17 at 1408 by JESSICA GLASGOW PELON received T/C from PELON stating that [facility] will not approve [facility]. PELON met with pt and pt confirmed [facility] is her second choice. Per PELON METZGER, [facility] is contracted with [facility]. PELON placed referral call to [facility]. SW will update note once [facility] responds to referral for placement. SRI Hernandez
--- NOTE | 2017-03-14 12:23 | PCM.PNMED ---
Subjective Date of Service Mar 14, 2017 Subjective pt is doing well, denied pain on left foot awaits SNF placement Exam Vital Signs Vital Sign - Last Date Time Temp Pulse Resp B/P Pulse Ox O2 Delivery O2 Flow Rate FiO2 03/14/17 09:39 36.7 64 20 128/72 98 Room Air 03/12/17 09:54 2.00 Intake and Output 03/13/17 03/13/17 03/14/17 Cumulative From/Thru 15:00 23:00 07:00 03/09/17 18:10 - 03/14/17 06:27 Intake Total 1000 ml 400 ml 16016 ml Output Total 600 ml 600 ml 46977 ml Balance 400 ml -200 ml -1201 ml Intake Oral 1000 ml 350 ml 8069 ml IV Total 50 ml 2930 ml Output Urine Total 600 ml 600 ml 14383 ml # Bowel Movements 0 2 Exam obese middle aged female, NAD, comfortably laying down on the bed no JVD, MMM, no LAD RRR, nl s1, s2 no mrg CTAB, no w,c S,ND,NT,normoactive BS+ left foot: sterilely dressed. LLE: 1+pitting edema, mild erythema IVs and Medications Medications Reviewed: Medications were reviewed in detail Lab and Diagnostics Result Diagram: 03/11/17 0504 03/11/17 0504 Microbiology micro from bedside I+D/debridement 03/10 no organisms 03/12 See paper chart, reportedly growing MSSA, X-Rays, CTs and MRIs US ABDOMEN, LIMITED: Blair Chandler M.D. on 03/10/2017 at 14:08 No ascites found throughout the peritoneal space. Dictated by: Blair Chandler M.D. on 03/10/2017 at 14:08 12-lead ECG Rate 122, QTC 476 and currently reviewed by Reanna 03/10 . Atrial fibrillation . Low voltage, precordial leads . Consider anterior infarct Cardiac Echo Impressions Echocardiogram Report: Savi 03/11 Please don't finalize-- Definity contrast used. 1) Mild concentric left ventricular hypertrophy with normal size and borderline reduced systolic function (EF 50-55%). 2) No focal wall motion abnormalities. 3) Mildly dilated right ventricular with mildly reduced function. 4) Moderate tricuspid regurgitation present. 5) Pulmonary hypertension present, estimated systolic pulmonary pressure of 55mmHg. 6) Hypertension present during the study (BP 153/75). 7) No prior Echo available for comparison. Assessment & Plan 66-yo woman presented with weakness, confusion, chills to [facility] 03/09, septic with probable source left lower extremity/osteomyelitis, transferred to [facility] to be seen by Dr. Pineda of podiatry. 03/10 Dr. Pineda needed to be consulted and it is coming to see the patient she is going to be fed today as there is no surgery planned at this point in time. CKs are trending down and eat an EKG and another troponin and an adjusting insulin as this patient is on upwards of 100 units a day and blood sugars are running over 300 while she was nothing by mouth. Treating hyperkalemia with IV fluids in addition to the rhabdo and giving a dose of Kayexalate will follow up labs in the morning. Her anemia is chronic and largely unchanged. Transaminitis likely related to whatever event cause the rhabdo and hope we will continue to trend this prior transaminases have been normal. 03/11 renal function is normalized, hyperkalemia corrected. Nephrology consult noted/appreciated. Rhabdo is greatly improved not totally resolved. EKG is slightly abnormal and patient is in A. fib and troponin somewhat elevated so we will check an echocardiogram. Blood pressure and heart rate were elevated this morning patient had not been getting metoprolol. This error was corrected. Blood sugar still elevated titrating back in NPH I do not believe that she is going to need sleep to 80 units of NPH twice a day. We're up to 30 units. 03/12 patient clinically much better she is up at bedside we will discontinue her Quiles catheter. Still not clear what happened with her blood sugars are she is not getting her sliding scale with the prandially this is been requested. In the meantime patient is weightbearing as tolerated with a offloading shoe she will likely be discharging home with IV antibiotics which ones not clear. For now we are continuing IV abx here till definitive therapy decided. acute. active Cellulitis/osteomyelitis L foot, MSSA, on Ancef 2 g q6 03/09- -Dr. Pineda DPM consulted 03/10, cultures from 03/10 (-) 03/12 -plan for 6wks Ancef via PICC at [facility] -awaits cultures 03/13, if positive will need KEVIN, Elevated transaminases - acute/new certainly steatohepatitis, will draw CMP today to trend chronic, stable HTNp- losartan 50mg ,Metoprolol tartrate 75 mg by mouth twice a day, stable Diabetes mellitus type II, - titrating back insulin for hyperglycemia, protocol not being followed blood sugars uncontrolled 03/13 order written to follow protocol. -glc in target, continue NPH 45Uam, 30U hs, 15U prandial+SS added 03/13 -Hemoglobin8.0 03/10 Rhabdomyolysis, CK >12,000 [facility] 03/09, down to 4900 03/10, 2100 03/11 AAKASH- base Cr 0.7, 1.5 03/10, 0.8 03/11 back to baseline Hyperuricemia- starting allopurinol hyperkalemia, - follow with a.m. labs-Dose Kayexalate 03/10, corrected 03/11 elevated troponin, POA active- need to see current EKG and follow most likely related to rhabdo. Patient is not symptomatic, EKG subtle abnormalities, Echo 03/12 largely normal as above Peripheral vascular disease- known chronically occluded superficial femoral artery attempted to be opened by Dr. Campos likely 2015, s/p intervention [facility] Dr Speedy gil,Rate controlled.ASA 81 mg daily?, metoprolol 75 mg BID, Warfarin dosed by pharmacy, last INR 1.4 on 03/09/2017 6 AM. Morbid obesity, present on admission, active- BMI 50.8, Dietitian/funeral pre arrangement specialist consultation Chronic Hypothyroidism, POA, stable- 50 g levothyroxine by mouth daily Anemia - Hg baseline 9-10 Prophylaxis- DVT patient on warfarin therapeutic, managed by pharmacy, GI on pantoprazole Disposition -n 1-2days, complicated as pt was refused by "too complicated", pt also failed home iv abx tx in the past, likely SNF for iv abx infusion. appreciate Full Code GI Prophylaxis: Not indicated VTE Prophylaxis: Theraputic Anticoag with Warfarin VTE Mechanical Devices: Intermittant Pneumatic CD Resuscitation Status: CPR: Attempt Resuscitation Time spent 35min Margaux Hadley MD Mar 14, 2017 12:23
--- NOTE | 2017-03-14 12:34 | NUR ---
Called and left message for Delfina Medeiros CM at [facility] and asked her to review patient for transfer to SNF for continued rehab, also asked to look into exception for [facility] patient comes from there and this would be for continuity of care. Updated DATA SCIENCES DIRECTOR Addendum: 03/14/17 at 1340 by KEVIN HEAD CM Recalled Delfina Arias CM at [facility] and she has not had a chance to review yet but she is looking now and will call right back. Updated DATA SCIENCES DIRECTOR Addendum: 03/14/17 at 1502 by KEVIN HEAD CM Called and updated Delfina HERMOSILLO at [facility] about patient being willing to go to [facility]. Updated Alfredo at [facility] that patient will be going to [facility] Updated Phillip at [facility] and that patient will most likely be ready tomorrow. Updated DATA SCIENCES DIRECTOR
--- NOTE | 2017-03-14 14:44 | DRSVH ---
PROCEDURE: X-RAY PICC LINE PLACEMENT BY NURSE ([id number]) INDICATIONS: 6 weeks of IV antibiotics COMPARISON: [facility], CR, XR PICC LINE PLACE BY NURSE, 01/21/2016, 15:01. FINDINGS: PICC was placed by the intravenous therapy team from the left side. Fluoroscopic spot fernanda m demonstrates tip of PICC in the mid/distal SVC. IMPRESSION: Tip of PICC lies within the mid/distal SVC. Dictated by: Raimundo Ta M.D. on 03/14/2017 at 14:41 Approved by: Raimundo Ta M.D. on 03/14/2017 at 14:42
--- NOTE | 2017-03-14 15:14 | NUR ---
Social Work: Continued Discharge Planning D: EMR reviewed. Pt is on day 5 of hospitalization. SW received T/C from stating that pt is no longer medically stable and will likely discharge tomorrow rather than today, as planned. SW received T/C from Phillip at [facility] stating that patient has been accepted with Dr. Garvey to follow. SW updated Phillip stating that pt likely to discharge tomorrow. SW updated pt and pt is agreeable. SW updated RN. SW will continue to follow. A: Pt for whom a SNF has been deemed medically necessary. P: Pt likely to discharge tomorrow - pt has been accepted at [facility] with Dr. Garvey to follow. PELON will coordinate transport once pt is medically stable for discharge. SRI Hernandez
[2017-03-14 16:16] LABS: BASOPHILS % (AUTO) 0.3 % (0-3); Mean Corpuscular Hemoglobin 28.7 pg (27.0-35.0)
[2017-03-14 16:21] LABS: MONOCYTES % (AUTO) 8.1 % (4-12); Mean Corpuscular Volume 90.7 fL (81-100); NEUTROPHILS % (AUTO) 68.9 % (40-74); Platelet Count 216 bil/L (150-400)
[2017-03-14 16:42] LABS: Magnesium 1.5 mg/dL (1.6-2.6); Phosphorus 4.5 mg/dL (2.5-4.9)
--- NOTE | 2017-03-14 17:01 | NUR ---
Back pain/agitation Patient c/o 10/10 back pain and very anxious. PRN oxycodone and ativan given with good effect. Patient denies pain/discomfort at this time.
--- NOTE | 2017-03-14 18:13 | PROG NOTE ---
[address] [address] PROGRESS NOTE PATIENT: TIM RODGERS : 1950 MR#: [id number] ADMIT: 03/09/2017 JOB ID: [id number] DATE: 03/14/2017 REASON FOR FOLLOWUP: Staph aureus bacteremia diagnosed at [facility] last week, and now with associated left diabetic foot infection. INTERVAL HISTORY: Recall, this is a patient with recurrent soft tissue infections of her feet with bad diabetes and neuropathy. She was seen at the [facility] recently and had positive blood cultures for MSSA prior to arrival here. We still need a full workup of this bacteremia. INTERVAL HISTORY: The patient, for her part, feels quite well today. No fevers, no chills. No sweats. She is having no significant shortness of breath or abdominal pain. She denies pain in her feet. She also denies neuropathy. Temp 36.7, pulse 64, respiratory rate 20, blood pressure 128/72. She is in no acute distress. She is loquacious and tangential as usual. Lungs relatively clear. Cardiac tones distant without new murmur. Abdomen obese, otherwise negative. Note that her BMI is 50. Her left lower extremity is dressed and I did not remove the dressing. LABORATORIES: Include white blood count still pending from today as it was just drawn. Her chemistries likewise still pending. Culture from the foot grew MSSA as well as Enterococcus. MRSA screen of the nares is negative. Recall that the blood cultures from [facility] just four days or so ago grew MSSA. The patient already had a transthoracic echo which showed no valvular vegetations though there was pulmonary hypertension. IMPRESSION: This is a challenging case of a woman from whom it is very difficult to obtain a good history because of her underlying bipolar disorder. It would appear that she is bacteremic on the basis of methicillin-sensitive staphylococcus aureus infection of her foot. It seems doubtful that she has endocarditis based on physical examination, and her transthoracic, though that possibility could not be excluded. I do not think we necessarily need a transesophageal echocardiogram in this patient because we are going to need six weeks of intravenous antibiotics in any event, because of her foot and possible deep infection there. Recall that this is also the patient who has had tremendous problems with home IV antibiotics before and I would not at all be sanguine about her receiving home IV antibiotics. RECOMMENDATIONS: 1. We await the final report on the cultures. I am planning to ask the micro lab to do susceptibilities to daptomycin for both the Staph and Enterococcus from her foot. 2. The patient does have a PICC line in place, and as long as her blood cultures stay negative, I would assume that it is uninfected. 3. Will make final antibiotic recommendations tomorrow for dose and duration of therapy, assuming her blood cultures stay negative.
[2017-03-14 20:15] VITALS: BP 142/70; PULSE 83; RESP 18; O2SAT 98
[2017-03-14] MEDS: DULoxetine 30 mg DR Capsule PO SCH (20:59)
[2017-03-14] MEDS ORDERED: Insulin LISPRO 300 Unit/3 mL Inj SUBQ ONE (23:00)
[2017-03-15] MEDS: CeFAZolin Inj 2 GM in IV Premix 1 EACH IV SCH ×3 (01:29→17:44)
[2017-03-15] MEDS: Sodium Chloride LOK Flush 10 mL Syringe IVFLUSH SCH ×3 (01:30→16:30)
--- NOTE | 2017-03-15 03:35 | NUR ---
Activity On initial assessment, patient was up in chair. Patient went to bed to chair throughout night. Patient did not appear agitated during assessment. VSS. Call light within reach. Care continues.
[2017-03-15 04:42] VITALS: BP 136/79; PULSE 75; RESP 18; O2SAT 99
[2017-03-15 06:45] LABS: INR 1.85 ratio
[2017-03-15] MEDS: Insulin LISPRO 300 Unit/3 mL Inj SUBQ SCH ×6 (07:30→22:06)
--- NOTE | 2017-03-15 07:40 | PCM.PHAPRO ---
Progress Warfarin dosing Warfarin Dosing: -pt is approaching goal, today's inr is 1.85 -coagulation trends: -Mar 12-Mar 13-Mar 14-Mar 15-Feb 1.12 1.15 1.43 1.76 1.85 -0.12 0.03 0.28 0.33 0.09 5MG 5MG 5mg 5MG 5MG -Plan: day 5 of warfarin as an inpatient. will continue with warfarin 5mg this evening Jelly Turpin [facility] Mar 15, 2017 07:40
--- NOTE | 2017-03-15 07:52 | PROG NOTE ---
[address] [address] PROGRESS NOTE PATIENT: TIM RODGERS : 1950 MR#: [id number] ADMIT: 03/09/2017 JOB ID: [id number] DATE: 03/14/2017 SUBJECTIVE: The patient is seen for follow up of infected ulcer, left foot. She denies any increasing pain in the foot, fever, or chills. She has a PICC line in place and is getting IV antibiotics. She is tolerating them well. Dressing change was performed yesterday and she cannot recall if it was changed today. PHYSICAL EXAMINATION: Blood pressure 142/70, pulse 83, respiratory rate 18, temperature 36.7, pulse oximetry 98% on room air. Lower extremity exam dressing is restricted. There is small amount of serosanguineous drainage. The ulcer measures 1.1 cm x 0.5 cm x 0.8 cm deep. There is approximately 90% fibrin tissue. The bone is exposed within the wound base and is white discolored. It is however hard to palpate. If feels hard with palpation. There is increased erythema and swelling from two days ago. There is no pustular discharge or fluctuance. I am able to express. LABORATORY DATA: WBC 7, hemoglobin 6.6, hematocrit 30.4, platelets 216, neutrophils 68.9. Sodium 137, potassium 4.9, chloride 102, carbon dioxide 21. BUN 16, creatinine 0.74. Glucose 225. Total protein 6.2. The albumin 3.0. AST 32, ALT 43. Wound culture from March 10, 2017, shows Staph aureus and enterococcus. The Staph aureus is oxacillin susceptible, penicillin resistant. ASSESSMENT AND PLAN: 1. Cellulitis with osteomyelitis. Left foot is showing increased signs of redness and swelling. I reviewed the culture results and the cefazolin covers the Staph aureus. However it would not cover the Enterococcus which is perhaps the reason why the infection has gotten worse. I will await Dr. Torres's recommendations on antibiotic choice. I discussed with the patient that if the infection does not resolve with changing the antibiotic that she may require debridement of the bone and possible amputation of the 4th and 5th toes. 2. Diabetic neuropathic ulceration, plantar 4th metatarsal plantar joint is unchanged. The nonviable and fibrotic tissue was sharply excised through skin edges through healthy subcutaneous tissue. I also debrided the exposed plantar 4th metatarsal head down to bleeding bone using a tissue nipper. There is minimal amount of bleeding. Hemostasis was achieved with pressure. The patient tolerated the procedure well. The ulceration was redressed using Hydrogel, 4 x 4 gauze, and Kerlix. 3. Type 2 diabetes with peripheral neuropathy. Her blood sugars are slightly elevated at 225. I discussed with the patient that with good glucose control is essential for wound healing as well as to fight infection. Her albumin INCOMPLETE DICTATION: Dictation ends here.
--- NOTE | 2017-03-15 08:24 | PROG NOTE ---
[address] [address] PROGRESS NOTE PATIENT: TIM RODGERS : 1950 MR#: [id number] ADMIT: 03/09/2017 JOB ID: [id number] DATE: 03/14/2017 SUBJECTIVE: The patient is seen for infected ulcer, left foot. She denies any increasing pain, fever or chills. She was seen by Dr. Torres twice. She had a PICC line placed, and is receiving IV antibiotics through it. She is scheduled to be transferred to [facility] [place]. She also complains of continued swelling in the lower legs, left greater than right. She continues to have increased weight gain. She denies any shortness of breath. PHYSICAL EXAMINATION: Blood pressure 142/70, pulse 83, respiratory rate 18, temperature 36.7, pulse oximetry 98% on room air. Lower extremity exam: Dressing is INCOMPLETE DICTATION: Dictation ends at this point.
[2017-03-15] MEDS: Fluticasone 0.05% 15 Spray/2 Gm 16 Gm Nasal Spray NASAL SCH (08:30)
--- NOTE | 2017-03-15 10:44 | NUR ---
Delfina Arias CM at [facility] has approved patient for transfer, like will need new auth if patient does not leave today. Updated CORK PAINTER AND GRADER
[2017-03-15] MEDS ORDERED: LORazepam 1 mg Tablet PO PRN (11:35)
[2017-03-15] MEDS: Insulin Human NPH 100 Unit/mL Syringe SUBQ SCH ×2 (12:15→22:06)
[2017-03-15] MEDS: Nystatin 100,000 Unit/Gm 15 Gm Powder TOPICAL SCH ×3 (12:26→19:43)
[2017-03-15 12:55] VITALS: BP 181/95; PULSE 80; RESP 20; O2SAT 98
--- NOTE | 2017-03-15 14:35 | PCM.PNMED ---
Subjective Date of Service Mar 15, 2017 Subjective pt remained clinically stable, afebrile, repeat BCX remained negative. Podiatry did bedside debridement today, Exam Vital Signs Vital Sign - Last Date Time Temp Pulse Resp B/P Pulse Ox O2 Delivery O2 Flow Rate FiO2 03/15/17 12:55 36.2 80 20 181/95 98 Room Air 03/12/17 09:54 2.00 Intake and Output 03/14/17 03/14/17 03/15/17 Cumulative From/Thru 15:00 23:00 07:00 03/09/17 18:10 - 03/15/17 06:20 Intake Total 1118 ml 1287 ml 25684 ml Output Total 1000 ml 650 ml 43956 ml Balance 118 ml 637 ml -446 ml Intake Oral 1118 ml 1237 ml 80757 ml IV Total 50 ml 2980 ml Output Urine Total 1000 ml 650 ml 69907 ml # Bowel Movements 1 0 3 Exam obese middle aged female, NAD, comfortably laying down on the bed no JVD, MMM, no LAD RRR, nl s1, s2 no mrg CTAB, no w,c S,ND,NT,normoactive BS+ left foot: sterilely dressed. LLE: 1+pitting edema, mild erythema IVs and Medications Medications Reviewed: Medications were reviewed in detail Lab and Diagnostics Result Diagram: 03/14/17 1600 03/14/17 1600 Microbiology micro from bedside I+D/debridement 03/10 no organisms 03/12 See paper chart, reportedly growing MSSA, X-Rays, CTs and MRIs US ABDOMEN, LIMITED: Blair Chandler M.D. on 03/10/2017 at 14:08 No ascites found throughout the peritoneal space. Dictated by: Blair Chandler M.D. on 03/10/2017 at 14:08 12-lead ECG Rate 122, QTC 476 and currently reviewed by Reanna 03/10 . Atrial fibrillation . Low voltage, precordial leads . Consider anterior infarct Cardiac Echo Impressions Echocardiogram Report: Savi 03/11 Please don't finalize-- Definity contrast used. 1) Mild concentric left ventricular hypertrophy with normal size and borderline reduced systolic function (EF 50-55%). 2) No focal wall motion abnormalities. 3) Mildly dilated right ventricular with mildly reduced function. 4) Moderate tricuspid regurgitation present. 5) Pulmonary hypertension present, estimated systolic pulmonary pressure of 55mmHg. 6) Hypertension present during the study (BP 153/75). 7) No prior Echo available for comparison. Assessment & Plan 66-yo woman presented with weakness, confusion, chills to [facility] 03/09, septic with probable source left lower extremity/osteomyelitis, transferred to [facility] to be seen by Dr. Pineda of podiatry. 03/10 Dr. Pineda needed to be consulted and it is coming to see the patient she is going to be fed today as there is no surgery planned at this point in time. CKs are trending down and eat an EKG and another troponin and an adjusting insulin as this patient is on upwards of 100 units a day and blood sugars are running over 300 while she was nothing by mouth. Treating hyperkalemia with IV fluids in addition to the rhabdo and giving a dose of Kayexalate will follow up labs in the morning. Her anemia is chronic and largely unchanged. Transaminitis likely related to whatever event cause the rhabdo and hope we will continue to trend this prior transaminases have been normal. 03/11 renal function is normalized, hyperkalemia corrected. Nephrology consult noted/appreciated. Rhabdo is greatly improved not totally resolved. EKG is slightly abnormal and patient is in A. fib and troponin somewhat elevated so we will check an echocardiogram. Blood pressure and heart rate were elevated this morning patient had not been getting metoprolol. This error was corrected. Blood sugar still elevated titrating back in NPH I do not believe that she is going to need sleep to 80 units of NPH twice a day. We're up to 30 units. 03/12 patient clinically much better she is up at bedside we will discontinue her Quiles catheter. Still not clear what happened with her blood sugars are she is not getting her sliding scale with the prandially this is been requested. In the meantime patient is weightbearing as tolerated with a offloading shoe she will likely be discharging home with IV antibiotics which ones not clear. For now we are continuing IV abx here till definitive therapy decided. acute. active Cellulitis/osteomyelitis L foot, MSSA, Enterococcus on wound culture, BCX 03/13 ngtd -appreciate Dr. Pineda DPM. -currently on Ancef, likely switch to Daptomycin per -awaits cultures 03/13 Elevated transaminases - acute/new certainly steatohepatitis, resolved. chronic, stable HTNp- losartan 50mg ,Metoprolol tartrate 75 mg by mouth twice a day, stable Diabetes mellitus type II, - titrating back insulin for hyperglycemia, protocol not being followed blood sugars uncontrolled 03/13 order written to follow protocol. -glc in target, continue NPH 45Uam, 30U hs, 15U prandial+SS added 03/13 -Hemoglobin8.0 03/10 Rhabdomyolysis, CK >12,000 [facility] 03/09, down to 4900 03/10, 2100 03/11 AAKASH- base Cr 0.7, 1.5 03/10, 0.8 03/11 back to baseline Hyperuricemia- starting allopurinol hyperkalemia, - follow with a.m. labs-Dose Kayexalate 03/10, corrected 03/11 elevated troponin, POA active- need to see current EKG and follow most likely related to rhabdo. Patient is not symptomatic, EKG subtle abnormalities, Echo 03/12 largely normal as above Peripheral vascular disease- known chronically occluded superficial femoral artery attempted to be opened by Dr. Campos likely 2016, s/p intervention [facility] Dr Speedy gil,Rate controlled.ASA 81 mg daily?, metoprolol 75 mg BID, Warfarin dosed by pharmacy, last INR 1.4 on 03/09/2017 6 AM. 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
--- NOTE | 2017-03-15 14:52 | NUR ---
Social Work: Readiness for Discharge D: EMR reviewed. Pt is on day 6 of hospitalization. Per MD in AM multi-disciplinary rounds, pt is likely to discharge tomorrow if blood cultures and test for sensitivity to Dapto come back negative. Phillip at [facility] confirmed pt is accepted with Dr. Garvey to follow. SW updated Phillip stating that pt likely to discharge tomorrow. Phillip agreeable. SW updated pt and pt is agreeable. SW updated RN. SW will continue to follow. A: Pt for whom a SNF has been deemed medically necessary. P: Pt likely to discharge tomorrow - pt has been accepted at [facility] with Dr. Garvey to follow. PELON will coordinate transport with [facility] once pt is medically stable for discharge. SRI Hernandez
[2017-03-15] MEDS: DAPTOmycin Inj 750 MG in 0.9% Sodium Chloride 50 ML IV SCH (16:12)
[2017-03-15] MEDS ORDERED: Glucose 40% Oral Gel 15 Gm Tube PO PRN (17:30)
--- NOTE | 2017-03-15 18:07 | PROG NOTE ---
[address] [address] PROGRESS NOTE PATIENT: TIM RODGERS : 1950 MR#: [id number] ADMIT: 03/09/2017 JOB ID: [id number] DATE: 03/15/2017 REASON FOR FOLLOWUP: MSSA bacteremia with associated left foot infection likely involving osteomyelitis. INTERVAL HISTORY: Recall this is a patient who presented recently to the [facility] with evidence of rhabdomyolysis as well as sepsis. Blood cultures there grew MSSA. The patient was subsequently transferred to this facility. It was found that she had osteomyelitis of the foot. Cultures of the foot yielded MSSA and Enterococcus. The patient's foot infection has proven to be somewhat difficult to manage even as her bacteremia has improved. Originally, she was treated with Ancef, and today we have added daptomycin while we await additional data regarding the Enterococcus. For her part, the patient says she feels "great." She says she has no fevers, no chills. No sweats, cough, shortness of breath or abdominal pain. She has no pain in her left foot and she is eagerly looking forward to [employer]'s dinner which she states will be something truly special. PHYSICAL EXAMINATION: Reveals an afebrile woman, temp 36.2, pulse 80, respiratory rate 20, blood pressure 181/95, saturating well on room air. No acute distress. Lungs are clear. Cardiac tones without significant murmur. Abdomen massively obese, soft, and nontender. The left foot is bandaged. LABORATORIES: Include yesterday's white count 7000, yesterday's creatinine 0.74. Cultures of the foot yielded MSSA and Enterococcus. The MSSA is very susceptible. The Enterococcus is susceptible to penicillin as well as aminoglycosides. I have asked for daptomycin susceptibility to both organisms and we await that result. Also note that a PICC line has been successfully inserted in left upper extremity. IMPRESSION: This patient has MSSA bacteremia which is of course first and foremost among her problems. An echocardiogram done during this admission did not show evidence of endocarditis. We did not do a transesophageal echo as the patient clinically does not have endocarditis and we are going to be treating for several weeks, probably six weeks, with IV antibiotics for the osteo in any event. It is unclear how important the Enterococcus is in this infection. The MSSA grew from blood at [facility] and this is a reasonable surrogate for identifying this as the cause of her osteomyelitis in her foot. The foot wound also grew MSSA and probably grew Enterococcus because it had been selected for by the antibiotics she had been receiving for the MSSA. Nonetheless, it is conceivable that the Enterococcus is playing some secondary role in her foot infection or we are going to evaluate whether daptomycin may serve as a useful antibiotic for both potential pathogens. RECOMMENDATIONS: 1. Will continue with Ancef. 2. We are going to add daptomycin until we have back the susceptibilities. 3. Probable discharge to the detention tomorrow on daptomycin for a total course of 5-6 weeks.
--- NOTE | 2017-03-15 18:24 | PROG NOTE ---
[address] [address] PROGRESS NOTE PATIENT: TIM RODGERS : 1950 MR#: [id number] ADMIT: 03/09/2017 JOB ID: [id number] DATE: ____ The patient is seen for infected ulcer, left foot. She denies any new problems with the ulceration at this time. She is not having any pain, fever or chills. PHYSICAL EXAMINATION: Blood pressure 181/95, pulse 80, respirations 20, temperature 36.2, pulse oximetry 98% on room air. Lower extremity exam dressing is intact. There is small amount of serosanguineous drainage on the dressing. The ulceration measures 0.9 cm x 0.5 cm x 0.6 cm. There is 90% fibrin tissue. The granulation tissue is pink and firm. There is decreased erythema and swelling around the ulcer and the 4th left toe from yesterday. There is a small amount of serous drainage. There is no pustular discharge or fluctuance noted. There is bone exposed within the wound base. However, this is unchanged from previous visit. Neurovascular status intact to all toes of the left foot. ASSESSMENT AND PLAN: 1. Cellulitis with osteomyelitis left foot. The acute signs of infection are improved from yesterday. The patient is now on daptomycin and this appears to be improving her acute symptoms. She is now on daptomycin which covers both the Staphylococcus aureus and Enterococcus. Once she is discharged, patient will receive IV antibiotics through her PICC line. This will be managed by Dr. Torres. 2. 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 The nonviable and fibrotic tissue was selectively debrided from base of the wound using a 15 blade. The ulceration was redressed using Hydrogel to keep the bone moist, 4 x 4 gauze, and Kerlix. The patient tolerated the procedure well. Hemostasis was achieved with pressure. Recommend that she partially weightbear on the rearfoot portion of her foot and that she ambulate in a surgical shoe. Will add an offload once she is seen at the [facility]. I recommended that she follow up at the [facility] within one week of discharge. 3. Type 2 diabetes with peripheral neuropathy. Her blood sugar when she comes to clinic is generally under 200. The patient is possibly discharged tomorrow. I will follow up with her at the [facility].
[2017-03-15] MEDS: DULoxetine 30 mg DR Capsule PO SCH (19:46)
[2017-03-15 19:57] VITALS: BP 172/74; PULSE 81; O2SAT 97
--- NOTE | 2017-03-15 19:58 | NUR ---
Pain/anxiety patient complained of generalized pain this morning hip/foot pain medicated with oxycodone and baclofen then sad she felt drugged . Patient with increased anxiety at times. Pt up ti chair for all meals. Glucose levels all over [address] notified and change made on insulin dose. Pt with dressing to left foot Dr Pineda here and changed.
[2017-03-16] MEDS ORDERED: 0.9% Sodium Chloride 100 ML ONE (00:24)
[2017-03-16] MEDS: Sodium Chloride LOK Flush 10 mL Syringe IVFLUSH SCH ×2 (00:30→09:18)
[2017-03-16] MEDS: CeFAZolin Inj 2 GM in IV Premix 1 EACH IV SCH ×2 (00:36→09:32)
--- NOTE | 2017-03-16 03:04 | NUR ---
Activity Pt sitting in chair most of shift, unable to sleep. Pt up to BR with SBA and cane, reporting painful ambulation due to hip, Pt reported right hip pain 01/26 and took scheduled Tylenol for this. Offered pt other pain meds, but she declined. Left foot dressing CDI. Addendum: 03/16/17 at 0518 by EDY BLACKWELL RN YASSINE sent this morning
[2017-03-16 04:39] VITALS: BP 154/70; PULSE 80; RESP 19; O2SAT 96
[2017-03-16 05:13] LABS: APPEARANCE,URINE CLOUDY (CLEAR,HAZY); COLOR,URINE YELLOW (YELLOW); OCCULT BLOOD,URINE NEGATIVE (NEGATIVE); UROBILINOGEN,URINE NORMAL (NORMAL); YEAST,URINE MANY (NONE SEEN)
[2017-03-16 05:34] LABS: INR 1.85 ratio
[2017-03-16 08:17] LABS: BASOPHILS % (AUTO) 0.3 % (0-3)
[2017-03-16 08:20] LABS: EOSINOPHILS % (AUTO) 2.6 % (0-5); MONOCYTES % (AUTO) 7.4 % (4-12); Mean Corpuscular Hemoglobin 28.6 pg (27.0-35.0); Mean Corpuscular Volume 90.4 fL (81-100); Platelet Count 198 bil/L (150-400)
[2017-03-16 08:55] LABS: Magnesium 1.5 mg/dL (1.6-2.6); Phosphorus 4.3 mg/dL (2.5-4.9)
[2017-03-16] MEDS: Nystatin 100,000 Unit/Gm 15 Gm Powder TOPICAL SCH ×2 (09:15→15:21)
[2017-03-16] MEDS: Fluticasone 0.05% 15 Spray/2 Gm 16 Gm Nasal Spray NASAL SCH (09:15)
[2017-03-16] MEDS: Insulin LISPRO 300 Unit/3 mL Inj SUBQ SCH ×2 (09:17→12:18)
[2017-03-16 09:33] VITALS: BP 154/78; PULSE 87; RESP 18; O2SAT 98
[2017-03-16] MEDS ORDERED: DAPT500V2 IV (10:12)
[2017-03-16] MEDS ORDERED: CEFA2PLA10 IV (10:12)
--- NOTE | 2017-03-16 10:17 | PCM.DIMED ---
Discharge Instructions Date of Service Mar 16, 2017 Dates of Hospitalization Mar 09, 2017 at 18:05 Discharge Diagnosis Discharge Diagnosis Cellulitis with osteomyelitis left foot, Diabetic neuropathic ulceration, uncontrolled type2 DM Medication Instructions Additional med instructions Antibiotic regimen Daptomycin 750mg q24h for total of 5-6weeks, started 03/15 until 04/19 Please adjust insulin based on glucose moniroing, pt received NPH 45unit in the morning 30unit at night in the hospital. Diet Discharge Diet: No restrictions Activity Discharge Activity: Home Health Phyical Therapy Call your provider Call your provider for: Fever or Chills Patient Instructions Patient Instructions You were hospitalized with left soft tissue infection and bone infection, related to uncontrolled diabetes. You were treated with antibiotics. Instruction for SNF> Patient has Cellulitis with osteomyelitis left foot, wound culture showed MSSA and enterococcus, which required prolonged course of abx as above Please make sure pt follows up to Wound care clinic in one week. 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 partially weightbear on the rearfoot portion of her foot and that she ambulate in a surgical shoe. Will add an offload once she is seen at the Wound Center. Follow-up plan Please follow up with in 2-3weeks and in 2-3wks in Wound care center as well Follow-up Provider: Ashley Pineda DPM Follow-up with PCP in: 1 week Provider: Neil Torres MD Follow-up in: 2 weeks Mid-level Provider (F9): Vel Lennon DO Follow-up with Mid-level in: 2 weeks Margaux Hadley MD Mar 16, 2017 10:09
[2017-03-16] MEDS ORDERED: Magnesium Sulf 2 Gm/50mL Water 2 GM in IV Premix 1 EACH IV ONE (10:20)
[2017-03-16] MEDS: Insulin Human NPH 100 Unit/mL Syringe SUBQ SCH (11:18)
--- NOTE | 2017-03-16 11:27 | NUR ---
Social Work: Discharge D: EMR reviewed. Pt is on day 7 of hospitalization. Per MD in AM multi-disciplinary rounds, pt is medically ready for discharge. Pt to receive IV Daptomycin at [facility] through April 19. [facility] T/C to Ghada Alonso, Level II Contracted Inflated Pad Buffer regarding pt and the need for an evaluation. Case reviewed. At this time, pt is engaging appropriately with care and pt's anxiety is not impacting her care or participation. Per Ghada, pt does not require Level II evaluation prior to discharge. [facility] updated regarding this. Anastasia, admissions at [facility], is agreeable to pt discharging today. PELON spoke with pt at bedside regarding discharge plan, pt agreeable to discharge. Isabella authorization has been obtained. MANAGER OF DRILLING created packet and faxed orders. Anastasia coordinated transportation to facility at 1300. Pt to discharge to [facility] with [facility] to follow, transport via wheelchair van at 1300. Paperwork in chart. RN, UC, pt/family, and [facility] all updated and agreeable to plan. A: Pt for whom a SNF has been deemed medically necessary. P: Isabella authorization has been obtained. Pt to discharge to [facility] with [facility] to follow, transport via wheelchair van at 1300. Paperwork in chart. RN, UC, pt/family, and [facility] all updated and agreeable to plan. SRI Fatima Addendum: 03/16/17 at 1224 by TENZIN BERRY RN notified MANAGER OF DRILLING that ID has scheduled pt's final abx for 1400 and requested that we delay pt's pickup time until 1600. T/C to Anastasia at [facility] who is agreeable. Pt to be transported to [facility] at 1600 after abx is done infusing. Maddison Berry MSW
--- NOTE | 2017-03-16 11:29 | PROG NOTE ---
[address] [address] PROGRESS NOTE PATIENT: TIM RODGERS : 1950 MR#: [id number] ADMIT: 03/09/2017 JOB ID: [id number] DATE: 03/16/2017 REASON FOR FOLLOWUP: Complex left diabetic foot infection with probable osteomyelitis as well as MSSA bacteremia. INTERIM HISTORY: Recall that this is the complex diabetic patient who was found to have an MSSA bacteremia during her initial evaluation at the [facility]. She then came here for treatment of her osteomyelitis. An echocardiogram did not show evidence of endocarditis and her blood cultures are now negative. Unfortunately her foot grew not only MSSA, but also enterococcus of unknown clinical significance. The patient relates today that she is feeling fine. She denies any fevers, chills, or sweats. She states she has some minimal pain in her left lateral forefoot around the site of the persistent ulcer. She has no cough, shortness of breath, nausea, vomiting, or diarrhea. PHYSICAL EXAMINATION: Reveals an obese woman in no acute distress. Temp 36.5, pulse 87, respiratory rate 18, blood pressure 154/78. She is saturating well on room air. She is in no acute distress. Is loquacious as usual. Oral cavity negative. Lungs clear. Cardiac tones regular rate and rhythm. The patient's abdomen is obese and nontender. I undressed her left foot. There is still an ulcer present over the left lateral forefoot with surrounding erythema and some tenderness. LABORATORIES: Include white count 7800, basically normal diff. Creatinine is 0.63. LFTs are normal. CPK 200. Procalcitonin 0.11. The microbiology from [facility] includes an MSSA found in blood. Blood cultures here are negative and now negative for more than three days. A MRSA screen here is negative. Cultures from the foot yielded Staph aureus which is MSSA as well as Enterococcus. IMPRESSION: This is an unfortunate woman with a history of recurrent diabetic foot infections who presented with methicillin sensitive Staphylococcus aureus bacteremia. Transthoracic echocardiogram did not show evidence of endocarditis nor is she clinically behave like endocarditis, and I am inclined to think that the methicillin sensitive Staphylococcus aureus bacteremia arose from the osteomyelitis of the left foot. We did not pursue a transesophageal echocardiogram because we decided on six weeks of therapy for the methicillin sensitive Staphylococcus aureus bacteremia and osteomyelitis regardless of any findings we might encounter on the transesophageal echo. At this point, the patient is doing well. The main question here is what antibiotic we could use that would be adequate for an methicillin sensitive Staphylococcus aureus bacteremia as well as osteo and also cover enterococcus isolated from the foot. Dr. Pineda is concerned that the Enterococcus in the foot may be a significant contributor to her osteo and soft tissue process in that left foot; I am not so certain, but think it is reasonable to cover it. Vanco would be one way to do it, but we know that vancomycin is an inferior drug for methicillin sensitive Staphylococcus aureus bacteremia as opposed to some other alternatives including beta lactams and possibly daptomycin. Likewise vanco would not work for the Enterococcus in the foot, but one would not experience any synergy as we often try and obtain between vanco or another cell wall active agent plus an aminoglycoside. We cannot use ampicillin, ceftriaxone which would otherwise be a tempting recipe in this case because of the patient's history of penicillin allergy so we are going to try and use daptomycin as a sole agent to cover both of these organisms. RECOMMENDATIONS: 1. Daptomycin 750 mg once a day through April 19. 2. Patient will need weekly CBC, CMP, CRP, and CPK. 3. I would be happy to follow these laboratories or the [facility] physician can do it. 4. I would like to see the patient in my clinic on March 30, but it is not essential for her labs are good and her foot is progressing, but I would be happy to see her on that date if anyone thinks that is indicated. Thank you very much. ID will go ahead and sign off at this time. I note that I discussed this case at the bedside with Dr. Hadley.
--- NOTE | 2017-03-16 11:30 | NUR ---
Spoke with Delfina Arias CM at [facility] and she is approved patient for transfer to SNF today. Patient plan is to discharge to [facility] today at 1300. Updated STRAIGHT RULING MACHINE OPERATOR Addendum: 03/16/17 at 1133 by TENZIN BERRY SS Pt is discharging to [facility], not [facility]
--- NOTE | 2017-03-16 12:26 | PCM.PHAPRO ---
Progress Date of Service: Mar 16, 2017 Warfarin dosing WARFARIN MANAGEMENT A\ 66 yo F admitted for Osteomyelitis with history of AFIB, diabetes, CKD PVD and HTN AFIB INR Goal =2-3 Current INR =1.85 HCT=31 Tct=841 Home Warfarin 5mg po daily Clopidogrel, Allopurinol, Nortriptyline, Duloxetine, Levothyroxine can all increase bleeding risk with Warfarin. Pt seems stable with her home medications. P\ INR has held stable at 1.85 for 2nd day in row after five days of 5mg daily. Will give Warfarin 6mg po x1 tonight to see if this small increase will help bring the pt into goal range. Monitor daily INRs and adjust Warfarin accordingly. Thank you Say Valdes [facility] Mar 16, 2017 12:26
[2017-03-16 14:30] VITALS: BP 144/72; PULSE 77; RESP 18; O2SAT 96
[2017-03-16] MEDS: DAPTOmycin Inj 750 MG in 0.9% Sodium Chloride 50 ML IV SCH (15:16)
--- NOTE | 2017-03-16 16:00 | NUR ---
discharged to [facility] per cabulance. report called to [facility]. Pt received Daptomycin prior to discharge. Also dressing changed prior to discharge. She is to have appt on 03/[address] Torres. SNF is aware
--- NOTE | 2017-03-17 11:32 | PCM.DC.MED ---
Discharge Summary Date of Service Mar 16, 2017 Dates of Hospitalization Date of Hospital Admission Mar 09, 2017 at 18:05 Date of Discharge: Mar 16, 2017 Providers: Admitting Physician: Margaux Collazo MD Primary Care Physician: Vel Lennon DO Attending Physician: Margaux Collazo MD Diagnosis at Time of Discharge Diagnosis at Time of Discharge acute dx Cellulitis with osteomyelitis left foot, Diabetic neuropathic ulceration, uncontrolled type2 DM Elevated transaminases Rhabdomyolysis, AAKASH- hyperkalemia, Elevated troponin, Hyperuricemia- chronic dx HTN Peripheral vascular disease- afib Morbid obesity, Chronic Hypothyroidism Anemia Consultations Podiatry ID Procedures XRay, CTs & MRIs US ABDOMEN, LIMITED: Blair Chandler M.D. on 03/10/2017 at 14:08 No ascites found throughout the peritoneal space. Dictated by: Blair Chandler M.D. on 03/10/2017 at 14:08 ECG 12 Lead Rate 122, QTC 476 and currently reviewed by Reanna 03/10 . Atrial fibrillation . Low voltage, precordial leads . Consider anterior infarct Cardiac Echo Impression Echocardiogram Report: Savi 03/11 Please don't finalize-- Definity contrast used. 1) Mild concentric left ventricular hypertrophy with normal size and borderline reduced systolic function (EF 50-55%). 2) No focal wall motion abnormalities. 3) Mildly dilated right ventricular with mildly reduced function. 4) Moderate tricuspid regurgitation present. 5) Pulmonary hypertension present, estimated systolic pulmonary pressure of 55mmHg. 6) Hypertension present during the study (BP 153/75). 7) No prior Echo available for comparison. Brief History HPI obtained by Dr. Lim on 03/10 Jazzy Nunez 66-year-old woman with diabetes mellitus type II insulin using , hyperlipidemia, atrial fibrillation on warfarin, transferred to [facility] from [facility] after being diagnosed with osteomyelitis, rhabdomyolysis, sepsis, acute on chronic renal insufficiency, elevated lactate and positive troponin. Patient states that prior to hospitalization she was being seen by her home health care nurse who ended up calling 911 after patient was acting confused and was having increased pain in her left foot causing her to not be able to ambulate, she also describes presence of a cough. She said she does not feel well and has had fevers, chills, and cold sweats starting roughly 5 days ago. She is being seen by Dr. Pineda DPM for ongoing problems with her feet, and Dr. Pineda has accepted the patient [facility]. Presenting vitals: 86.8, 95, 20, 100/50, 92% on 2 L nasal cannula. Labs on presentation 03/07/2017: WBC 10.6, Hgb 9.7, MCV 89.5, platelets 131, RDW 14.9. Sodium 129, potassium 5.6, chloride 92, bicarbonate 23, anion gap of 14, glucose 371, BUN 44, creatinine 3.38, estimated GFR 13 mL per minute. ALT/AST 97/297, total bilirubin 1.6, troponin 0.61, 8 hours later increased to 1.49 creatinine kinase total 12,791 with an MB fraction of 16.4 Most recent labs from today, March 09, WBC 5.9, Hgb 8.8, MCV 90, platelets 118, RDW 14.9. Sodium 136, potassium 4.7, chloride 102, bicarbonate 23, anion gap 11 , glucose 155, BUN 65, creatinine 3.34, estimated GFR 14 mL per minute, Urine from 03/07/2017 trace leukocyte esterase, pH 5.5, nitrite negative, 1+ protein, 2+ blood, negative ketones, negative glucose, 3+ bacteria, occasional epithelial cells. Physician dictation from discharge summary states EKG showed atrial fibrillation with RVR, rate 110, nonspecific intraventricular conduction delay. CT abdomen and pelvis without contrast showed left kidney nonobstructive stone 0.5 cm the lower pole. Otherwise unremarkable. Chest x-ray showed poor inspiratory effort and poor quality film no acute cardiopulmonary findings. Blood culture DNA identification panel performed March 07 revealed Staphylococcus aureus She was started on Ancef as she appeared to be growing MSSA and vancomycin was discontinued. She received potassium replacement at [facility], improved anion gap. Hospital Course 66-yo woman presented with weakness, confusion, chills to [facility] 03/09, septic with probable source left lower extremity/osteomyelitis, transferred to [facility] to be seen by Dr. Pineda of podiatry. acute dx Cellulitis/osteomyelitis L foot, pt was seen by Podiatry and ID, wound culture grew MSSA, Enterococcus. BCX 03/13 remained negative till date. Patient received Ancef but then eventually switched to Daptomycin per . Elevated transaminases - acute/new certainly steatohepatitis, resolved. Rhabdomyolysis, CK >12,000 [facility] 03/09, resolved with supportive tx. AAKASH- base Cr 0.7, 1.5 03/10, 0.8 03/11 back to baseline hyperkalemia, corrected with Kayexalate Elevated troponin, most likely related to rhabdo. Patient was not symptomatic, EKG subtle abnormalities, Echo 03/12 largely normal Hyperuricemia- started allopurinol chronic dx HTNp- losartan 50mg ,Metoprolol tartrate 75 mg by mouth twice a day, stable Diabetes mellitus type II, glc was in target with NPH 45Uam, 30U hs, 15U prandial+SS added 03/13, Hemoglobin8.0 03/10 Peripheral vascular disease- known chronically occluded superficial femoral artery attempted to be opened by Dr. Campos likely 2015, s/p intervention 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 Exam Vital Signs (Last) Date Time Temp Pulse Resp B/P Pulse Ox O2 Delivery O2 Flow Rate FiO2 03/16/17 14:30 36.4 77 18 144/72 96 Room Air 03/12/17 09:54 2.00 Exam Patient was examined on the day of discharge Test 03/09/17 23:00 03/10/17 05:00 03/11/17 05:04 03/15/17 04:57 Hemoglobin A1c 8.0% (4.8-5.6) Uric Acid 9.8mg/dL (2.6-7.2) Nucleated Red Blood Cells 3/100 WBC (0-24) Hematology Comments Lactic Acid Level 0.9mmol/L (0.4-2.0) Iron Level 50ug/dL (35-150) Total Iron Binding Capacity 217ug/dL (250-450) Percent Iron Saturation 23%sat (15-50) Unsaturated Iron Binding 166.7ug/dL Troponin T 0.085ug/L (0.0-0.011) Globulin (PEP) 3.3g/dL (2.2-3.9) Albumin/Globulin Ratio 0.8 (0.7-1.7) Pdkjg-1-Mgtgijxjc 0.4g/dL (0.0-0.4) Raggh-7-Vbzqmzboc 1.3g/dL (0.4-1.0) Beta Globulins 0.9g/dL (0.7-1.3) Gamma Globulins 0.6g/dL (0.4-1.8) Serum Monoclonal Protein Not observedg/dL Protein Electrophoresis Comment Comment (.) Protein Electrophoresis Interpret Comment (.) Urine Color Yellow (YELLOW) Urine Appearance Cloudy (CLEAR,HAZY) Urine pH 5.0 (5.0-8.0) Urine Specific Loman 1.020 (1.003-1.035) Urine Protein Tracemg/dL (NEG,TRACE) Urine Glucose (UA) 250mg/dL (NEGATIVE) Urine Ketones Negativemg/dL (NEGATIVE) Urine Occult Blood Negative (NEGATIVE) Urine Nitrite Negative (NEGATIVE) Urine Bilirubin Negative (NEGATIVE) Urine Urobilinogen Normalmg/dL (NORMAL) Urine Leukocyte Esterase Moderate (NEGATIVE) Urine RBC 3-10/hpf (0-2) Urine WBC >50/hpf (0-5) Urine Epithelial Cells Many/hpf (NONE-MOD) Urine Crystals None seen (NONE SEEN) Urine Bacteria Moderate/hpf (NONE-FEW) Urine Hyaline Casts None/lpf (NONE) Urine Granular Casts None seen (NONE SEEN) Urine Waxy Casts None seen (NONE SEEN) Urine Red Blood Cell Casts None seen (NONE SEEN) Urine White Blood Cell Casts None seen (NONE SEEN) Urine Mucus None seen (None Seen) Urine Trichomonas None seen (NONE SEEN) Urine Yeast Many (NONE SEEN) Urinalysis Comment None Urine Culture Reflexed Indicated Urine Random Sodium 62mEq/L Test 03/16/17 05:05 03/16/17 08:00 Prothrombin Time 20.1sec (8.1-12.5) Prothromb Time International Ratio 1.85ratio White Blood Count 7.8th/mm3 (3.8-10.1) Red Blood Count 3.43mil/mm3 (3.90-5.20) Hemoglobin 9.8g/dL (12.0-15.6) Hematocrit 31.0% (35.0-46.0) Mean Corpuscular Volume 90.4fL (81-100) Mean Corpuscular Hemoglobin 28.6pg (27.0-35.0) Mean Corpuscular Hemoglobin Concent 31.6% (32.0-37.0) Red Cell Distribution Width 15.9% (12.3-15.4) Platelet Count 198bil/L (150-400) Neutrophils (%) (Auto) 72.0% (40-74) Lymphocytes (%) (Auto) 12.7% (14-46) Monocytes (%) (Auto) 7.4% (4-12) Eosinophils (%) (Auto) 2.6% (0-5) Basophils (%) (Auto) 0.3% (0-3) Sodium Level 136mEq/L (134-144) Potassium Level 5.0mEq/L (3.5-5.2) Chloride Level 99mEq/L (97-108) Carbon Dioxide Level 24mmol/L (18-29) Blood Urea Nitrogen 15mg/dL (8-27) Creatinine 0.63mg/dL (0.57-1.00) Estimat Glomerular Filtration Rate 135mL/min (>59) Glucose Level 199mg/dL (60-99) Calcium Level 9.6mg/dL (8.5-10.1) Phosphorus Level 4.3mg/dL (2.5-4.9) Magnesium Level 1.5mg/dL (1.6-2.6) Total Bilirubin 0.3mg/dL (0.0-1.2) Aspartate Amino Transf (AST/SGOT) 31U/L (0-50) Alanine Aminotransferase (ALT/SGPT) 31U/L (0-32) Alkaline Phosphatase 123U/L (25-165) Total Creatine Kinase 200U/L (21-215) Total Protein 6.1g/dL (6.4-8.4) Albumin 3.3g/dL (3.4-5.0) Procalcitonin 0.11ng/mL (0.00-0.08) Microbiology Results micro from bedside I+D/debridement 03/10 no organisms 03/12 See paper chart, reportedly growing MSSA, Discharge Medications Discharge Medications Aspirin (Aspirin) 81 Mg Tablet 81 MG PO DAILY (Reported) Atorvastatin (Lipitor) 80 Mg Tablet 80 MG PO HS (Reported) Baclofen (Baclofen) 10 Mg Tablet 10 MG PO TID (Reported) pt. takes at 0400 1200 2000 Calcium Carbonate/Vitamin D3 (Calcium 250+D Tablet) 1 Each Tablet 1 EACH PO BIDWM (Reported) Cholecalciferol (Vitamin D3) (Vitamin D3) 5,000 Unit Tab.rapdis 5,000 UNIT PO DAILY (Reported) Clopidogrel Bisulfate (Plavix) 75 Mg Tablet 75 MG PO DAILY (Reported) Daptomycin (Daptomycin) 500 Mg Vial 750 MG IV DAILY Prescribed by: MARGAUX COLLAZO MD Duloxetine (Duloxetine) 60 Mg Capsule.dr 60 MG PO HS (Reported) Ferrous Sulfate (Feosol) 325 Mg Tablet 325 MG PO TIDWM Prescribed by: LAVERNE DAUGHERTY MD Furosemide (Furosemide) 80 Mg Tab 120 MG PO DAILY (Reported) Lactobacillus Acidophilus/Pect (Acidophilus-Pectin Capsule) 1 Each Capsule 1 EACH PO TID (Reported) Levothyroxine (Levothyroxine) 50 Mcg Tablet 50 MCG PO DAILY (Reported) Losartan Potassium (Losartan Potassium) 100 Mg Tablet 100 MG PO HS (Reported) Metformin (Glucophage) 1,000 Mg Tablet 1,000 MG PO BIDAC (Reported) Metoprolol Tartrate (Metoprolol Tartrate) 75 Mg Tablet 75 MG PO BID (Reported) Multivitamin (Once Daily) 1 Each Tablet 1 EACH PO DAILY (Reported) NPH, Human Insulin Isophane (HUMulin-N U100 Insulin Vial) 100 Unit/1 Ml Vial 60- 80 UNIT SUBQ 0700 (Reported) May change dose depending on blood sugars NPH, Human Insulin Isophane (HUMulin-N U100 Insulin Vial) 100 Unit/1 Ml Vial 60- 80 UNIT SUBQ 2100 (Reported) May change dose depending on blood sugar Nortriptyline (Nortriptyline) 75 Mg Capsule 150 MG PO HS (Reported) Nystatin (Nystatin) 1 Each Powder.ea. 1 EACH MC TID (Reported) Pantoprazole (Pantoprazole DR) 40 Mg Tablet 40 MG PO BIDAC Prescribed by: LAVERNE DAUGHERTY MD Ranitidine (Ranitidine) 150 Mg Capsule 150 MG PO BID (Reported) Sodium Fluoride (Clinpro 5000) 113 Gm Paste..g. 113 GM DENTAL BID (Reported) rub on teeth at least twice daily-don't rinse Spironolactone (Spironolactone) 50 Mg Tablet 50 MG PO BID (Reported) Warfarin Sodium (Warfarin Sodium) 5 Mg Tablet 5 MG PO DAILY (Reported) As needed Lorazepam (Lorazepam) 1 Mg Tablet 1 MG PO TID PRN PRN For Anxiety (Reported) Polyethylene Glycol 3350 (Miralax) 17 Gm Powd.pack 17 GM PO DAILY PRN PRN For Constipation Prescribed by: LAVERNE DAUGHERTY MD Sennosides (Senna) 8.6 Mg Tablet 8.6 MG PO DAILY PRN PRN For Constipation ( Reported) oxyCODONE-Acetaminophen 10-325 mg (oxyCODONE-Acetaminophen 10-325 mg) 1 Each Tablet 1 TABLET PO Q6H PRN PRN For Pain (Reported) Additional med instructions Antibiotic regimen Daptomycin 750mg q24h for total of 5-6weeks, started 03/15 until 04/19 Please adjust insulin based on glucose moniroing, pt received NPH 45unit in the morning 30unit at night in the hospital. Followup Plan Disposition: SNF Follow-up plan Please follow up with in 2-3weeks and in 2-3wks in Wound care center as well Discharge Diet: No restrictions Discharge Activity: Home Health Phyical Therapy Patient Instructions You were hospitalized with left soft tissue infection and bone infection, related to uncontrolled diabetes. You were treated with antibiotics. Instruction for SNF> Patient has Cellulitis with osteomyelitis left foot, wound culture showed MSSA and enterococcus, which required prolonged course of abx as above Please make sure pt follows up to Wound care clinic in one week. 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 partially weightbear on the rearfoot portion of her foot and that she ambulate in a surgical shoe. Will add an offload once she is seen at the Wound Center. Follow-up Provider: Ashley Pineda DPM Follow-up with PCP in: 1 week Provider: Neil Torres MD Follow-up in: 2 weeks Mid-level Provider: Vel Lennon DO Follow-up with Mid-level in: 2 weeks Time spent 65min Margaux Collazo MD Mar 17, 2017 11:32
== END 2017-03-16 16:16 | DRG 464 ==
LOC: OSC 18:05
PROVIDERS: ADMIT Internal Medicine; ATTEND Hospitalist
PROC: 0QBP0ZZ Excision of Left Metatarsal, Open Approach (ICD-10-PCS; principal; 2017-03-10)
PROC: 0JBR0ZZ Excision of Left Foot Subcutaneous Tissue and Fascia, Open Approach (ICD-10-PCS; 2017-03-12)
PROC: 0JBR0ZZ Excision of Left Foot Subcutaneous Tissue and Fascia, Open Approach (ICD-10-PCS; 2017-03-14)
DX: M86.172 Other acute osteomyelitis, left ankle and foot (principal); L03.116 Cellulitis of left lower limb; N17.9 Acute kidney failure, unspecified; Z68.43 Body mass index [BMI] 50.0-59.9, adult; M62.82 Rhabdomyolysis; E11.65 Type 2 diabetes mellitus with hyperglycemia; E87.5 Hyperkalemia; E66.01 Morbid (severe) obesity due to excess calories; I73.9 Peripheral vascular disease, unspecified; E03.9 Hypothyroidism, unspecified; E78.5 Hyperlipidemia, unspecified; I48.91 Unspecified atrial fibrillation; Z79.01 Long term (current) use of anticoagulants; E11.42 Type 2 diabetes mellitus with diabetic polyneuropathy; B95.61 Methicillin susceptible Staphylococcus aureus infection as the cause of diseases classified elsewhere; E11.621 Type 2 diabetes mellitus with foot ulcer; L97.529 Non-pressure chronic ulcer of other part of left foot with unspecified severity; I12.9 Hypertensive chronic kidney disease with stage 1 through stage 4 chronic kidney disease, or unspecified chronic kidney disease; N18.9 Chronic kidney disease, unspecified; D63.1 Anemia in chronic kidney disease; Z79.84 Long term (current) use of oral hypoglycemic drugs